=== PATIENT | female | born 1935 | race Two or more races ===

== ENCOUNTER 2016-05-29 13:31 | Outpatient (RCR) | payer OTHER, MEDICARE ==
[2016-06-18] MEDS ORDERED: SILV-4 TOP (11:30)
--- NOTE | 2016-06-26 10:46 | RADONC ---
RADIATION ONCOLOGY PROGRESS NOTE: DATE: 06/25/2016 Ms. Dickson is thus far at a dose of 3600 centigrade to her pelvis and was last treated on 06/18/2016. The patient has not shown up for treatment for the past week. Her daughter called again today reporting that she still has skin problems. She reports that there is some minor openings in the skin. We let the patient's daughter know that I have sent in a prescription for Silvadene a week ago. The prescription went in, according to our electronic medical record, on the . The patient's daughter then told us that she had been using the Silvadene until the skin blistered and then she went to antibiotic ointments. I instructed her to continue with the Silvadene which is specifically for mcneill. I have made it aware to the patient's daughter that she is losing chance of local control with each day off and I would like to resume as soon as possible. The patient's daughter says she is not up to that yet and they will let us know had they will let us know when she is coming back. Apparently, there is no decision yet made on whether or not she is going to go for the brachytherapy procedure. In light of the fact that brachytherapy is unlikely, I guess the break in the external beam portion is of less significant since we will not be able to control this disease. I have had and will continue to have multiple long conversations with the patient and her family with regards to the lack of ability to control this disease with only external beam radiation as well as interrupted external beam radiation. In addition, she has not had radiation sensitizing chemotherapy either. One can only consider this then palliative in nature.
--- NOTE | 2016-07-02 16:05 | RADONC ---
RADIATION ONCOLOGY TREATMENT SUMMARY DATE: 07/02/2016 CHART NUMBER: [id number] DIAGNOSIS: Cervical cancer. STAGE: Unknown. ECOG PERFORMANCE STATUS: 1. Ms. 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 We treated the patient to her pelvis for a dose of 3600 cGy delivered in 20 fractions of 180 cGy each over 33 elapsed days from 05/16/2016 through 06/18/2016. The patient was treated on the linear accelerator utilizing an 18 MV photon beam via 3-D conformal technique with anterior posterior left and right lateral gallo. The patient and her family have refused come in for the last 2 weeks of treatment. On at least a weekly basis, if not more frequently, I have spoken with the patient and her family in detail and length with regards to need for brachytherapy procedure and uninterrupted radiation. The patient's daughter called today saying the family and the patient have decided against any further radiation or followup in our office. We made clear to her once again the ramifications of this. The patient is not presently bleeding according to the family. I have made clear not just today, but during multiple phone calls and another conversations that if radiation is interrupted the bleeding will just return and then there is really nothing we can do about this. Once again the patient and her family have refused to come in for treatment or for brachytherapy against medical advice. They have removed themselves from followup in our office as well. They will not be returning to Dr. Becker's office either according to the daughter. I am therefore removing her from our treatment schedule and followup schedule as well. cc: Adela Astorga MD *Dr. Valenzuela *Kaylen Becker MD
== END 2016-06-26 ==
LOC: M ONCR 13:31
PROVIDERS: ATTEND Radiology Radiation Oncology
DX: C53.9 Malignant neoplasm of cervix uteri, unspecified (principal)

== ENCOUNTER 2016-06-30 23:06 | Emergency (ER) | payer MEDICARE, OTHER ==
[~2016-06-30 23:06] MED LIST: SILV-4 TOP
[2016-07-01 02:06] LABS: BASO % 0.1 % (0.0-1.0); EOS # 0.1 K/mm3 (0.0-0.50); EOS % 1.3 % (0.0-3.0); LARGE UNSTAINED CELL # 0.2 K/mm3 (0.0-0.4); LARGE UNSTAINED CELL % 3.4 % (0.0-4.0); LYMPH # 0.3 K/mm3 (1.5-4.5); LYMPH % 4.9 % (24.0-44.0); MEAN CORPUSCULAR HEMOGLOBIN 23.9 pg (27.0-33.0); MEAN CORPUSCULAR HGB CONC 29.3 g/dl (32.0-36.5); MEAN CORPUSCULAR VOLUME 81.6 fl (80.0-96.0); MONO # 0.3 K/mm3 (0.0-0.8); NEUTROPHILS # 4.5 K/mm3 (1.8-7.7); NEUTROPHILS % 85.3 % (36.0-66.0); PLATELET COUNT, AUTOMATED 437 k/mm3 (150-450); RED CELL DISTRIBUTION WIDTH 20.3 % (11.5-14.5); WHITE BLOOD COUNT 5.3 K/mm3 (4.0-10.0)
[2016-07-01 02:31] LABS: ANION GAP 8 MEQ/L (8-16); BLOOD UREA NITROGEN 18 MG/DL (7-18); CALCIUM LEVEL 9.2 MG/DL (8.8-10.2); CARBON DIOXIDE LEVEL 26 MEQ/L (21-32); CHLORIDE LEVEL 103 MEQ/L (98-107); CREATININE FOR GFR 0.72 MG/DL (0.55-1.02); GLOMERULAR FILTRATION RATE > 60.0 (>32); GLUCOSE, FASTING 154 MG/DL (83-110); POTASSIUM SERUM 4.6 MEQ/L (3.5-5.1); SODIUM LEVEL 137 MEQ/L (136-145)
[2016-07-01] MEDS ORDERED: MORPHINE 2 MG/ML 1ML SYRINGE As Ordered ONE (03:28)
[2016-07-01] MEDS ORDERED: ISOVUE-370 76% 100ML VIAL (Q9967) As Ordered ONE (03:34)
--- NOTE | 2016-07-01 04:40 | REPUSA ---
CLINICAL HISTORY: Abdominal pain. TECHNIQUE: Multiple axial, sagittal and coronal CT images were obtained through the abdomen and pelvi s after administration of intravenous contrast material. COMMENTS: The liver is of uniform attenuation without mass or defect. There is no intra or extrahepatic biliary ductal dilatation. The spleen is normal. The gallbladder is surgically absent. The pancreas is of no rmal contour and attenuation characteristics. There is no evidence of adrenal mass. Both kidneys demonstrate prompt and equal nephrograms. The kidneys are normal in size, shape and conf iguration. There is no evidence of renal or ureteral mass. No renal or ureteral calculi are identifie d. There is no hydroureter or hydronephrosis. No evidence for appendicitis. No evidence for small or large bowel obstruction. There is no evidence of abdominal ascites or lymphadenopathy. There is no evidence of intrinsic or extrinsic bladder mass. There is no pelvic ascites or lymphadeno petey. Fluid-filled small bowel suggestive of enteritis. Fluid-filled colon. Sigmoid diverticulosis. Thickened bladder. Hypodensity in the endometrial cavity. Images of the lung bases show no evidence of pleural or parenchymal mass. There are no pleural effusi ons. Bilateral basilar atelectatic pulmonary changes. The bony structures are free of lytic or blastic lesions. Multilevel degenerative changes are seen in volving the thoracolumbar spine. Scattered calcifications are seen involving the aorta and major bran ches compatible with atherosclerosis. IMPRESSION: Enterocolitis. Cystitis. Bilateral basilar atelectatic pulmonary changes. Thank you for your kind referral of this patient.
[2016-07-01] MEDS ORDERED: BACTRIM 160MG/800MG DS TAB As Ordered ONE (05:26)
--- NOTE | 2016-07-01 05:38 | EDDOCDS ---
Nurse's Notes [facility] Name: Kathy Dickson Age: 81 yrs Sex: Female : 1935 Arrival Date: 06/30/2016 Time: 23:06 Bed 6 Private MD: Charan Hay Diagnosis: Other specified disorders of the skin and subcutaneous tissue related to radiation;Cystitis, unspecified Presentation: 06/30 23:14 Presenting complaint: Patient states: Radiation to right groin--tonight has hole in mcp groin with some drainage. Adult Sepsis Screening: The patient does not have new or worsening altered mentation. Patient's respiratory rate is less than 22. Systolic blood pressure is greater than 100. Patient has a qSOFA score of 0- Negative Sepsis Screen. Suicide/Homicide risk assessment- the patient denies having any suicidal and/or homicidal ideations and does not present with any other emotional, behavioral or mental health complaints. 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 Transition of care: patient was not received from another setting of care. 23:14 Acuity: ROSARIO Level 3 [facility] 23:14 Method Of Arrival: Walkin/Carried/Asstd [facility] Triage Assessment: 23:20 General: Appears uncomfortable, Behavior is cooperative. Pain: Location: right femoral mcp area Pain currently is 3 out of 10 on a pain scale. Neurological: No deficits noted. Respiratory: Airway is patent Respiratory effort is even, unlabored. Derm: Skin is pink, warm & dry. Historical: - Allergies: Aspirin; - Home Meds: 1. metformin 1,000 mg Oral TG24 1 tab 2 times per day 2. lisinopril 40 mg Oral tab 1 tab once daily 3. simvastatin 40 mg Oral tab 1 tab once daily 4. Sertraline 50 mg daily 5. thyroxine 25 mcg daily 6. repaglinide 2 mg oral tab 1 tab 3 times per day 7. pioglitazone 45 mg oral tab 1 tab once daily 8. Vitamin D Oral 1,000 unit twice a day 9. multivitamin Oral tab 1 tablet daily 10. Zantac 150 mg Oral cap as needed 11. Zyrtec 10 mg Oral tab 1 tab as needed - PMHx: Hypertension; Diabetes - NIDDM: controlled; Hypothyroidism; Hypercholesterolemia; Cancer, Cervix; - PSHx: Cholecystectomy; Appendectomy; - Social history: Smoking status: Patient states former smoker of tobacco. No barriers to communication noted, The patient speaks fluent Burmese. - Family history: Not pertinent. - : The pt / caregiver states he / she is not on anticoagulants. Home medication list is obtained from the patient. - Exposure Risk Screening:: None identified. Screenin/05 00:47 Screening information is obtained from the patient. Fall risk: At risk due to gait mv5 disturbance, uses cane at baseline.. Assistance ADL's: requires no assistance with activities of daily living. Abuse/DV Screen: The patient / caregiver reports he/she is: not in a situation that causes fear, pain or injury. Nutritional screening: No deficits noted. home support is adequate. 05:34 Advance Directives: There is no active DNR order. mv5 Assessment: 00:47 General: Appears uncomfortable, well nourished, well groomed, Behavior is cooperative, mv5 pleasant, Smells of wound exudate.. Pain: Location: right femoral area. Neurological: Level of Consciousness is awake, alert, Oriented to person, place, time. Cardiovascular: Capillary refill < 3 seconds. Respiratory: Airway is patent Respiratory effort is even, unlabored, labored. GI: Bowel sounds present X 4 quads. Abd is soft Abd is tender to palpation tender in right groin fold. Right groin firmer than left. Pt and family report several radiation treatments over the last 6 weeks to that area. Skin not intact. GI: Reports Pain is 6 out of 10 on a pain scale. pain in area of radiation burn/wound. Derm:. Injury Description: Burn sustained to right femoral area is "radiation burn" per pt and family r/t treatment of cervical CA. 01:18 General: Appears in no apparent distress, Pt awaiting ERP eval. mv5 02:52 General: Appears in no apparent distress, Pt assisted to restroom and returned to [facility] stretcher safely.. 03:58 General: Pt to CT and returned without incident.. mv5 Vital Signs: 06/30 23:07 BP 155 / 68; Pulse 104; Resp 18 S; Temp 98.0(O); Pulse Ox 97% on R/A; Weight 88 kg (R); gr2 Height 5 ft. 3 in. (160.02 cm) (R); Pain 5/10; 02/05 02:03 BP 134 / 63 (auto/); Pulse 98; Resp 18; mv5 02:05 Pulse Ox 98% ; mv5 02:33 BP 119 / 60 (auto/); mv5 02:33 Pulse Ox 96% ; mv5 03:56 BP 131 / 68 (auto/); mv5 03:57 Pulse Ox 98% ; mv5 04:06 BP 168 / 75 (auto/); mv5 04:07 Pulse Ox 96% ; mv5 04:33 BP 165 / 80 (auto/); mv5 04:33 Pulse Ox 98% ; mv5 05:03 BP 142 / 65 (auto/); mv5 05:03 BP 142 / 65; Pulse 88; Resp 18; Temp 98.2(O); Pulse Ox 99% ; mv5 02 23:07 Body Mass Index 34.37 (88.00 kg, 160.02 cm) gr2 Vitals: 06/30 23:07 Log In Time: June 30, 2016 at 23:07. gr2 ED Course: 23:07 Patient visited by Winsome Keith. gr2 23:07 Charan Hay is Private Physician. gr2 23:07 Patient moved to Waiting gr2 23:11 Patient visited by Winsome Keith. gr2 23:11 Patient moved to Pre RCE gr2 23:15 Triage Initiated [facility] 23:20 Patient visited by Esperanza Danielson RN. [facility] 02/05 00:37 Lotus Bauer, SIM is Primary Nurse. cz 00:37 Patient moved to 6 cz 00:47 Patient visited by Reshma Rivas RN. mv5 00:47 The patient / caregiver is instructed regarding the plan of care and ED course. mv5 01:18 Patient visited by Reshma Rivas RN. mv5 01:20 Seb Cullen DO is Attending Physician. cs11 01:36 Patient visited by Seb Cullen DO. cs11 01:47 Wound Culture - All Other Sources Sent. mv5 02:02 Inserted saline lock: 20 gauge in left antecubital area and blood collected. The mv5 patient tolerated the procedure well. 02:02 MED Profile Sent. mv5 02:02 CBC with Diff Sent. mv5 02:22 Patient visited by Reshma Rivas RN. mv5 02:32 Primary Nurse role handed off by Lotus Bauer RN mv5 02:32 Reshma Rivas RN is Primary Nurse. mv5 02:33 [facility] Payment Agreement was scanned into [employer] and attached to record. pm4 02:36 Patient name changed from Kathy\\S\\\\S\\Yessi\\S\\ to Kathy\\S\\ \\S\\Yessi. EDMS 02:52 Patient visited by Reshma Rivas RN. mv5 03:23 Patient visited by Reshma Rivas RN. mv5 03:57 Patient visited by Reshma Rivas RN. mv5 04:28 Patient visited by Reshma Rivas RN. mv5 04:41 CT ABD & PELVIS: IV Contrast Only Returned. EDMS 05:34 No procedures done that require assistance. mv5 05:34 Discontinued intact, bleeding controlled, pressure dressing applied, No mv5 redness/swelling at site. Administered Medications: 03:40 Drug: NS 0.9% 500 ml [sodium chloride 0.9 % intravenous solution] Route: IV; Rate: mv5 bolus; Site: left antecubital; 04:29 Follow up: IV Status: Completed infusion mv5 03:40 Drug: morphine 2 mg [morphine 2 mg/mL intravenous cartridge (1 mL)] Route: IVP; Site: mv5 left antecubital; 04:29 Follow up: Response: No Adverse Reaction; Pain is decreased mv5 05:30 Drug: Trimethoprim-Sulfamethoxazole 1 tabs [sulfamethoxazole 800 mg-trimethoprim 160 mg mv5 tablet (1 tabs)] Route: PO; 05:36 Follow up: Response: No Adverse Reaction mv5 Order Results: Lab Order: CBC with Diff; SPEC'M 07/01/16 01:53 Test: WHITE BLOOD COUNT; Value: 5.3; Range: 4.0-10.0; Units: K/mm3; Status: F Test: RED BLOOD COUNT; Value: 3.63; Range: 4.00-5.40; Abnormal: Below low normal; Units: M/mm3; Status: F Test: HEMOGLOBIN; Value: 8.7; Range: 12.0-16.0; Abnormal: Below low normal; Units: g/dl; Status: F Test: HEMATOCRIT; Value: 29.6; Range: 36.0-47.0; Abnormal: Below low normal; Units: %; Status: F Test: MEAN CORPUSCULAR VOLUME; Value: 81.6; Range: 80.0-96.0; Units: fl; Status: F Test: MEAN CORPUSCULAR HEMOGLOBIN; Value: 23.9; Range: 27.0-33.0; Abnormal: Below low normal; Units: pg; Status: F Test: MEAN CORPUSCULAR HGB CONC; Value: 29.3; Range: 32.0-36.5; Abnormal: Below low normal; Units: g/dl; Status: F Test: RED CELL DISTRIBUTION WIDTH; Value: 20.3; Range: 11.5-14.5; Abnormal: Above high normal; Units: %; Status: F Test: PLATELET COUNT, AUTOMATED; Value: 437; Range: 150-450; Units: k/mm3; Status: F Test: NEUTROPHILS %; Value: 85.3; Range: 36.0-66.0; Abnormal: Above high normal; Units: %; Status: F Test: LYMPH %; Value: 4.9; Range: 24.0-44.0; Abnormal: Below low normal; Units: %; Status: F Test: MONO %; Value: 5.0; Range: 0.0-5.0; Units: %; Status: F Test: EOS %; Value: 1.3; Range: 0.0-3.0; Units: %; Status: F Test: BASO %; Value: 0.1; Range: 0.0-1.0; Units: %; Status: F Test: LARGE UNSTAINED CELL %; Value: 3.4; Range: 0.0-4.0; Units: %; Status: F Test: NEUTROPHILS #; Value: 4.5; Range: 1.8-7.7; Units: K/mm3; Status: F Test: LYMPH #; Value: 0.3; Range: 1.5-4.5; Abnormal: Below low normal; Units: K/mm3; Status: F Test: MONO #; Value: 0.3; Range: 0.0-0.8; Units: K/mm3; Status: F Test: EOS #; Value: 0.1; Range: 0.0-0.50; Units: K/mm3; Status: F Test: BASO #; Value: 0.0; Range: 0.0-0.2; Units: K/mm3; Status: F Test: LARGE UNSTAINED CELL #; Value: 0.2; Range: 0.0-0.4; Units: K/mm3; Status: F Lab Order: MED Profile; JAMI'Anabela 07/01/16 01:53 Test: GLUCOSE, FASTING; Value: 154; Range: 83-110; Abnormal: Above high normal; Units: MG/DL; Status: F Test: BLOOD UREA NITROGEN; Value: 18; Range: 7-18; Units: MG/DL; Status: F Test: CREATININE FOR GFR; Value: 0.72; Range: 0.55-1.02; Units: MG/DL; Status: F Test: GLOMERULAR FILTRATION RATE; Value: > 60.0; Range: >32; Status: F Test: SODIUM LEVEL; Value: 137; Range: 136-145; Units: MEQ/L; Status: F Test: POTASSIUM SERUM; Value: 4.6; Range: 3.5-5.1; Units: MEQ/L; Status: F Test: CHLORIDE LEVEL; Value: 103; Range: 98-107; Units: MEQ/L; Status: F Test: CARBON DIOXIDE LEVEL; Value: 26; Range: 21-32; Units: MEQ/L; Status: F Test: ANION GAP; Value: 8; Range: 8-16; Units: MEQ/L; Status: F Test: CALCIUM LEVEL; Value: 9.2; Range: 8.8-10.2; Units: MG/DL; Status: F Test Note: ; Units are mL/min/1.73 m2 Chronic Kidney Disease Staging per NKF: Stage I & II GFR >=60 Normal to Mildly Decreased Stage III GFR 30-59 Moderately Decreased Stage IV GFR 15-29 Severely Decreased Stage V GFR <15 Very Little GFR Left ESRD GFR <15 on INSTALL TECHNICIAN Radiology Order: CT ABD & PELVIS: IV Contrast Only Test: CT ABD & PELVIS: IV Contrast Only REASON FOR EXAMINATION: eval for RLQ abscess; ; CLINICAL HISTORY: Abdominal pain.; TECHNIQUE: Multiple axial, sagittal and coronal CT images were obtained through the abdomen and pelvi; s after administration of intravenous contrast material.; COMMENTS:; The liver is of uniform attenuation without mass or defect. There is no intra or extrahepatic biliary; ductal dilatation. The spleen is normal. The gallbladder is surgically absent. The pancreas is of no; rmal contour and attenuation characteristics. There is no evidence of adrenal mass.; Both kidneys demonstrate prompt and equal nephrograms. The kidneys are normal in size, shape and conf; iguration. There is no evidence of renal or ureteral mass. No renal or ureteral calculi are identifie; d. There is no hydroureter or hydronephrosis.; No evidence for appendicitis. No evidence for small or large bowel obstruction. There is no evidence; of abdominal ascites or lymphadenopathy.; There is no evidence of intrinsic or extrinsic bladder mass. There is no pelvic ascites or lymphadeno; petey. Fluid-filled small bowel suggestive of enteritis. Fluid-filled colon. Sigmoid diverticulosis.; Thickened bladder. Hypodensity in the endometrial cavity.; Images of the lung bases show no evidence of pleural or parenchymal mass. There are no pleural effusi; ons. Bilateral basilar atelectatic pulmonary changes.; The bony structures are free of lytic or blastic lesions. Multilevel degenerative changes are seen in; volving the thoracolumbar spine. Scattered calcifications are seen involving the aorta and major bran; ches compatible with atherosclerosis.; IMPRESSION:; Enterocolitis.; Cystitis.; Bilateral basilar atelectatic pulmonary changes.; Thank you for your kind referral of this patient.; ; Outcome: 05:25 Discharge ordered by Provider. cs11 05:34 Discharge Assessment: Patient awake, alert and oriented x 3. No cognitive and/or mv5 functional deficits noted. Patient verbalized understanding of disposition instructions. patient administered narcotics - yes. Pt provided with safe discharge. The following High Risk Discharge criteria are identified: None. Discharged to home with family. Condition: stable. Discharge instructions given to patient, Demonstrated understanding of instructions, Pt was receptive of discharge instructions/ teaching. CT Study completed. Property sent home with patient. 05:37 Patient left the ED. mv5 Signatures: Dispatcher [employer] EDMS Esperanza Danielson RN RN mcp Zecher, Calvin, RN RN cz Schiff, Craig, DO DO cs11 Winsome Keith gr2 Mauro Zaidi, Reg Reg pm4 Vannedery,Reshma,RN RN mv5 MTDD
--- NOTE | 2016-07-01 05:38 | EDDOCDS ---
Physician Documentation [facility] Name: Kathy Dickson Age: 81 yrs Sex: Female : 1935 Arrival Date: 06/30/2016 Time: 23:06 Bed 6 Private MD: Charan Hay Disposition: 07/01/16 05:25 Discharged to Home/Self Care. 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 - Condition is Stable. - Prescriptions for Bactrim DS 800- 160 mg Oral Tablet - take 1 tablet by ORAL route every 12 hours for 5 days; 10 tablet. - Medication Reconciliation, Local Pharmacy Hours form. - Follow up: Private Physician; When: Call to arrange an appointment; Reason: Recheck today's complaints. - Problem is an ongoing problem. - Symptoms are unchanged. Historical: - Allergies: Aspirin; - Home Meds: 1. metformin 1,000 mg Oral TG24 1 tab 2 times per day 2. lisinopril 40 mg Oral tab 1 tab once daily 3. simvastatin 40 mg Oral tab 1 tab once daily 4. Sertraline 50 mg daily 5. thyroxine 25 mcg daily 6. repaglinide 2 mg oral tab 1 tab 3 times per day 7. pioglitazone 45 mg oral tab 1 tab once daily 8. Vitamin D Oral 1,000 unit twice a day 9. multivitamin Oral tab 1 tablet daily 10. Zantac 150 mg Oral cap as needed 11. Zyrtec 10 mg Oral tab 1 tab as needed - PMHx: Hypertension; Diabetes - NIDDM: controlled; Hypothyroidism; Hypercholesterolemia; Cancer, Cervix; - PSHx: Cholecystectomy; Appendectomy; - Social history: Smoking status: Patient states former smoker of tobacco. No barriers to communication noted, The patient speaks fluent Malagasy. - Family history: Not pertinent. - : The pt / caregiver states he / she is not on anticoagulants. Home medication list is obtained from the patient. - Exposure Risk Screening:: None identified. Vital Signs: 06/30 23:07 BP 155 / 68; Pulse 104; Resp 18 S; Temp 98.0(O); Pulse Ox 97% on R/A; Weight 88 kg / gr2 194.01 lbs (R); Height 5 ft. 3 in. (160.02 cm) (R); Pain 5/10; 07/01 02:03 BP 134 / 63 (auto/); Pulse 98; Resp 18; mv5 02:05 Pulse Ox 98% ; mv5 02:33 BP 119 / 60 (auto/); mv5 02:33 Pulse Ox 96% ; mv5 03:56 BP 131 / 68 (auto/); mv5 03:57 Pulse Ox 98% ; mv5 04:06 BP 168 / 75 (auto/); mv5 04:07 Pulse Ox 96% ; mv5 04:33 BP 165 / 80 (auto/); mv5 04:33 Pulse Ox 98% ; mv5 05:03 BP 142 / 65 (auto/); mv5 05:03 BP 142 / 65; Pulse 88; Resp 18; Temp 98.2(O); Pulse Ox 99% ; mv5 02/04 23:07 Body Mass Index 34.37 (88.00 kg, 160.02 cm) gr2 MDM: 01:44 Wound Culture - All Other Sources Ordered. EDMS 01:50 IV Saline Lock ordered. cs11 01:50 CBC with Diff Ordered. EDMS 01:51 MED Profile Ordered. EDMS 02:23 Financial registration complete. pm4 02:33 [facility] Payment Agreement was scanned into [employer] and attached to record. pm4 03:24 CBC with Diff Reviewed. cs11 03:24 MED Profile Reviewed. cs11 03:25 NS 0.9% 500 ml IV at bolus once ordered. cs11 03:26 CT ABD & PELVIS: IV Contrast Only Ordered. EDMS 03:26 morphine 2 mg IVP once ordered. cs11 05:18 CT ABD & PELVIS: IV Contrast Only Reviewed. cs11 05:24 Trimethoprim-Sulfamethoxazole 160 mg-800 mg (DS) 1 tabs PO once ordered. cs11 Administered Medications: 03:40 Drug: NS 0.9% 500 ml [sodium chloride 0.9 % intravenous solution] Route: IV; Rate: mv5 bolus; Site: left antecubital; 04:29 Follow up: IV Status: Completed infusion mv5 03:40 Drug: morphine 2 mg [morphine 2 mg/mL intravenous cartridge (1 mL)] Route: IVP; Site: mv5 left antecubital; 04:29 Follow up: Response: No Adverse Reaction; Pain is decreased mv5 05:30 Drug: Trimethoprim-Sulfamethoxazole 1 tabs [sulfamethoxazole 800 mg-trimethoprim 160 mg mv5 tablet (1 tabs)] Route: PO; 05:36 Follow up: Response: No Adverse Reaction mv5 Signatures: Dispatcher [employer] Esperanza Blood, RN RN mcp Seb Cullen, DO cs11 Mauro Zaidi, Reg Reg pm4 Reshma Rivas RN RN mv5 The chart was reviewed and I authenticate all verbal orders and agree with the evaluation and treatment provided.Attachments: 02:33 [facility] Payment Agreement pm4 MTDD
--- NOTE | 2016-07-03 06:38 | EDDOCDS ---
Physician Documentation [facility] Name: Kathy Dickson Age: 81 yrs Sex: Female : 1935 Arrival Date: 06/30/2016 Time: 23:06 Bed 6 Private MD: Charan Hay Disposition: 07/01/16 05:25 Discharged to Home/Self Care. 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 - Condition is Stable. - Prescriptions for Bactrim DS 800- 160 mg Oral Tablet - take 1 tablet by ORAL route every 12 hours for 5 days; 10 tablet. - Medication Reconciliation, Local Pharmacy Hours form. - Follow up: Private Physician; When: Call to arrange an appointment; Reason: Recheck today's complaints. - Problem is an ongoing problem. - Symptoms are unchanged. Historical: - Allergies: Aspirin; - Home Meds: 1. metformin 1,000 mg Oral TG24 1 tab 2 times per day 2. lisinopril 40 mg Oral tab 1 tab once daily 3. simvastatin 40 mg Oral tab 1 tab once daily 4. Sertraline 50 mg daily 5. thyroxine 25 mcg daily 6. repaglinide 2 mg oral tab 1 tab 3 times per day 7. pioglitazone 45 mg oral tab 1 tab once daily 8. Vitamin D Oral 1,000 unit twice a day 9. multivitamin Oral tab 1 tablet daily 10. Zantac 150 mg Oral cap as needed 11. Zyrtec 10 mg Oral tab 1 tab as needed - PMHx: Hypertension; Diabetes - NIDDM: controlled; Hypothyroidism; Hypercholesterolemia; Cancer, Cervix; - PSHx: Cholecystectomy; Appendectomy; - Social history: Smoking status: Patient states former smoker of tobacco. No barriers to communication noted, The patient speaks fluent Cuban. - Family history: Not pertinent. - : The pt / caregiver states he / she is not on anticoagulants. Home medication list is obtained from the patient. - Exposure Risk Screening:: None identified. Vital Signs: 06/30 23:07 BP 155 / 68; Pulse 104; Resp 18 S; Temp 98.0(O); Pulse Ox 97% on R/A; Weight 88 kg / gr2 194.01 lbs (R); Height 5 ft. 3 in. (160.02 cm) (R); Pain 5/10; 02/05 02:03 BP 134 / 63 (auto/); Pulse 98; Resp 18; mv5 02:05 Pulse Ox 98% ; mv5 02:33 BP 119 / 60 (auto/); mv5 02:33 Pulse Ox 96% ; mv5 03:56 BP 131 / 68 (auto/); mv5 03:57 Pulse Ox 98% ; mv5 04:06 BP 168 / 75 (auto/); mv5 04:07 Pulse Ox 96% ; mv5 04:33 BP 165 / 80 (auto/); mv5 04:33 Pulse Ox 98% ; mv5 05:03 BP 142 / 65 (auto/); mv5 05:03 BP 142 / 65; Pulse 88; Resp 18; Temp 98.2(O); Pulse Ox 99% ; mv5 02/04 23:07 Body Mass Index 34.37 (88.00 kg, 160.02 cm) gr2 MDM: 01:44 Wound Culture - All Other Sources Ordered. EDMS 01:50 IV Saline Lock ordered. cs11 01:50 CBC with Diff Ordered. EDMS 01:51 MED Profile Ordered. EDMS 02:23 Financial registration complete. pm4 02:33 [facility] Payment Agreement was scanned into [employer] and attached to record. pm4 03:24 CBC with Diff Reviewed. cs11 03:24 MED Profile Reviewed. cs11 03:25 NS 0.9% 500 ml IV at bolus once ordered. cs11 03:26 CT ABD & PELVIS: IV Contrast Only Ordered. EDMS 03:26 morphine 2 mg IVP once ordered. cs11 05:18 CT ABD & PELVIS: IV Contrast Only Reviewed. cs11 05:24 Trimethoprim-Sulfamethoxazole 160 mg-800 mg (DS) 1 tabs PO once ordered. cs11 12:45 T-Sheet-- Draft Copy was scanned into [employer] and attached to record. gb Administered Medications: 03:40 Drug: NS 0.9% 500 ml [sodium chloride 0.9 % intravenous solution] Route: IV; Rate: mv5 bolus; Site: left antecubital; 04:29 Follow up: IV Status: Completed infusion mv5 03:40 Drug: morphine 2 mg [morphine 2 mg/mL intravenous cartridge (1 mL)] Route: IVP; Site: mv5 left antecubital; 04:29 Follow up: Response: No Adverse Reaction; Pain is decreased mv5 05:30 Drug: Trimethoprim-Sulfamethoxazole 1 tabs [sulfamethoxazole 800 mg-trimethoprim 160 mg mv5 tablet (1 tabs)] Route: PO; 05:36 Follow up: Response: No Adverse Reaction mv5 Signatures: Dispatcher [employer] Esperanza Blood, RN RN [facility] Beth Ramsay, Reg Reg gb Seb Cullen, DO cs11 Mauro Zaidi, Reg Reg pm4 Reshma Rivas RN RN mv5 The chart was reviewed and I authenticate all verbal orders and agree with the evaluation and treatment provided.Attachments: 02:33 [facility] Payment Agreement pm4 12:45 T-Sheet-- Draft Copy gb Chart Complete MTDD
--- NOTE | 2016-07-03 06:38 | EDDOCDS ---
Physician Documentation [facility] Name: Kathy Dickson Age: 81 yrs Sex: Female : 1935 Arrival Date: 06/30/2016 Time: 23:06 Bed 6 Private MD: Charan Hay Disposition: 07/01/16 05:25 Discharged to Home/Self Care. 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 - Condition is Stable. - Prescriptions for Bactrim DS 800- 160 mg Oral Tablet - take 1 tablet by ORAL route every 12 hours for 5 days; 10 tablet. - Medication Reconciliation, Local Pharmacy Hours form. - Follow up: Private Physician; When: Call to arrange an appointment; Reason: Recheck today's complaints. - Problem is an ongoing problem. - Symptoms are unchanged. Historical: - Allergies: Aspirin; - Home Meds: 1. metformin 1,000 mg Oral TG24 1 tab 2 times per day 2. lisinopril 40 mg Oral tab 1 tab once daily 3. simvastatin 40 mg Oral tab 1 tab once daily 4. Sertraline 50 mg daily 5. thyroxine 25 mcg daily 6. repaglinide 2 mg oral tab 1 tab 3 times per day 7. pioglitazone 45 mg oral tab 1 tab once daily 8. Vitamin D Oral 1,000 unit twice a day 9. multivitamin Oral tab 1 tablet daily 10. Zantac 150 mg Oral cap as needed 11. Zyrtec 10 mg Oral tab 1 tab as needed - PMHx: Hypertension; Diabetes - NIDDM: controlled; Hypothyroidism; Hypercholesterolemia; Cancer, Cervix; - PSHx: Cholecystectomy; Appendectomy; - Social history: Smoking status: Patient states former smoker of tobacco. No barriers to communication noted, The patient speaks fluent Bruneian. - Family history: Not pertinent. - : The pt / caregiver states he / she is not on anticoagulants. Home medication list is obtained from the patient. - Exposure Risk Screening:: None identified. Vital Signs: 06/30 23:07 BP 155 / 68; Pulse 104; Resp 18 S; Temp 98.0(O); Pulse Ox 97% on R/A; Weight 88 kg / gr2 194.01 lbs (R); Height 5 ft. 3 in. (160.02 cm) (R); Pain 5/10; 02/05 02:03 BP 134 / 63 (auto/); Pulse 98; Resp 18; mv5 02:05 Pulse Ox 98% ; mv5 02:33 BP 119 / 60 (auto/); mv5 02:33 Pulse Ox 96% ; mv5 03:56 BP 131 / 68 (auto/); mv5 03:57 Pulse Ox 98% ; mv5 04:06 BP 168 / 75 (auto/); mv5 04:07 Pulse Ox 96% ; mv5 04:33 BP 165 / 80 (auto/); mv5 04:33 Pulse Ox 98% ; mv5 05:03 BP 142 / 65 (auto/); mv5 05:03 BP 142 / 65; Pulse 88; Resp 18; Temp 98.2(O); Pulse Ox 99% ; mv5 02/04 23:07 Body Mass Index 34.37 (88.00 kg, 160.02 cm) gr2 MDM: 01:44 Wound Culture - All Other Sources Ordered. EDMS 01:50 IV Saline Lock ordered. cs11 01:50 CBC with Diff Ordered. EDMS 01:51 MED Profile Ordered. EDMS 02:23 Financial registration complete. pm4 02:33 [facility] Payment Agreement was scanned into [employer] and attached to record. pm4 03:24 CBC with Diff Reviewed. cs11 03:24 MED Profile Reviewed. cs11 03:25 NS 0.9% 500 ml IV at bolus once ordered. cs11 03:26 CT ABD & PELVIS: IV Contrast Only Ordered. EDMS 03:26 morphine 2 mg IVP once ordered. cs11 05:18 CT ABD & PELVIS: IV Contrast Only Reviewed. cs11 05:24 Trimethoprim-Sulfamethoxazole 160 mg-800 mg (DS) 1 tabs PO once ordered. cs11 12:45 T-Sheet-- Draft Copy was scanned into [employer] and attached to record. gb Administered Medications: 03:40 Drug: NS 0.9% 500 ml [sodium chloride 0.9 % intravenous solution] Route: IV; Rate: mv5 bolus; Site: left antecubital; 04:29 Follow up: IV Status: Completed infusion mv5 03:40 Drug: morphine 2 mg [morphine 2 mg/mL intravenous cartridge (1 mL)] Route: IVP; Site: mv5 left antecubital; 04:29 Follow up: Response: No Adverse Reaction; Pain is decreased mv5 05:30 Drug: Trimethoprim-Sulfamethoxazole 1 tabs [sulfamethoxazole 800 mg-trimethoprim 160 mg mv5 tablet (1 tabs)] Route: PO; 05:36 Follow up: Response: No Adverse Reaction mv5 Signatures: Dispatcher [employer] Esperanza Blood, RN RN [facility] Beth Ramsay, Reg Reg gb Seb Cullen, DO cs11 Mauro Zaidi, Reg Reg pm4 Reshma Rivas RN RN mv5 The chart was reviewed and I authenticate all verbal orders and agree with the evaluation and treatment provided.Attachments: 02:33 [facility] Payment Agreement pm4 12:45 T-Sheet-- Draft Copy gb Chart Complete MTDD
--- NOTE | 2016-07-03 06:38 | EDDOCDS ---
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 Adult Sepsis Screening: The patient does not have new or worsening altered mentation. Patient's respiratory rate is less than 22. Systolic blood pressure is greater than 100. Patient has a qSOFA score of 0- Negative Sepsis Screen. Suicide/Homicide risk assessment- the patient denies having any suicidal and/or homicidal ideations and does not present with any other emotional, behavioral or mental health complaints. Status: Patient is not a construction services technician or dependent. Transition of care: patient was not received from another setting of care. 23:14 Acuity: ROSARIO Level 3 [facility] 23:14 Method Of Arrival: Walkin/Carried/Asstd [facility] Triage Assessment: 23:20 General: Appears uncomfortable, Behavior is cooperative. Pain: Location: right femoral mcp area Pain currently is 3 out of 10 on a pain scale. Neurological: No deficits noted. Respiratory: Airway is patent Respiratory effort is even, unlabored. Derm: Skin is pink, warm & dry. Historical: - Allergies: Aspirin; - Home Meds: 1. metformin 1,000 mg Oral TG24 1 tab 2 times per day 2. lisinopril 40 mg Oral tab 1 tab once daily 3. simvastatin 40 mg Oral tab 1 tab once daily 4. Sertraline 50 mg daily 5. thyroxine 25 mcg daily 6. repaglinide 2 mg oral tab 1 tab 3 times per day 7. pioglitazone 45 mg oral tab 1 tab once daily 8. Vitamin D Oral 1,000 unit twice a day 9. multivitamin Oral tab 1 tablet daily 10. Zantac 150 mg Oral cap as needed 11. Zyrtec 10 mg Oral tab 1 tab as needed - PMHx: Hypertension; Diabetes - NIDDM: controlled; Hypothyroidism; Hypercholesterolemia; Cancer, Cervix; - PSHx: Cholecystectomy; Appendectomy; - Social history: Smoking status: Patient states former smoker of tobacco. No barriers to communication noted, The patient speaks fluent Pakistani. - Family history: Not pertinent. - : The pt / caregiver states he / she is not on anticoagulants. Home medication list is obtained from the patient. - Exposure Risk Screening:: None identified. Screenin/05 00:47 Screening information is obtained from the patient. Fall risk: At risk due to gait mv5 disturbance, uses cane at baseline.. Assistance ADL's: requires no assistance with activities of daily living. Abuse/DV Screen: The patient / caregiver reports he/she is: not in a situation that causes fear, pain or injury. Nutritional screening: No deficits noted. home support is adequate. 05:34 Advance Directives: There is no active DNR order. mv5 Assessment: 00:47 General: Appears uncomfortable, well nourished, well groomed, Behavior is cooperative, mv5 pleasant, Smells of wound exudate.. Pain: Location: right femoral area. Neurological: Level of Consciousness is awake, alert, Oriented to person, place, time. Cardiovascular: Capillary refill < 3 seconds. Respiratory: Airway is patent Respiratory effort is even, unlabored, labored. GI: Bowel sounds present X 4 quads. Abd is soft Abd is tender to palpation tender in right groin fold. Right groin firmer than left. Pt and family report several radiation treatments over the last 6 weeks to that area. Skin not intact. GI: Reports Pain is 6 out of 10 on a pain scale. pain in area of radiation burn/wound. Derm:. Injury Description: Burn sustained to right femoral area is "radiation burn" per pt and family r/t treatment of cervical CA. 01:18 General: Appears in no apparent distress, Pt awaiting ERP eval. mv5 02:52 General: Appears in no apparent distress, Pt assisted to restroom and returned to [facility] stretcher safely.. 03:58 General: Pt to CT and returned without incident.. mv5 Vital Signs: 06/30 23:07 BP 155 / 68; Pulse 104; Resp 18 S; Temp 98.0(O); Pulse Ox 97% on R/A; Weight 88 kg (R); gr2 Height 5 ft. 3 in. (160.02 cm) (R); Pain 5/10; 02/05 02:03 BP 134 / 63 (auto/); Pulse 98; Resp 18; mv5 02:05 Pulse Ox 98% ; mv5 02:33 BP 119 / 60 (auto/); mv5 02:33 Pulse Ox 96% ; mv5 03:56 BP 131 / 68 (auto/); mv5 03:57 Pulse Ox 98% ; mv5 04:06 BP 168 / 75 (auto/); mv5 04:07 Pulse Ox 96% ; mv5 04:33 BP 165 / 80 (auto/); mv5 04:33 Pulse Ox 98% ; mv5 05:03 BP 142 / 65 (auto/); mv5 05:03 BP 142 / 65; Pulse 88; Resp 18; Temp 98.2(O); Pulse Ox 99% ; mv5 02 23:07 Body Mass Index 34.37 (88.00 kg, 160.02 cm) gr2 Vitals: 06/30 23:07 Log In Time: June 30, 2016 at 23:07. gr2 ED Course: 23:07 Patient visited by Winsome Keith. gr2 23:07 Charan Hay is Private Physician. gr2 23:07 Patient moved to Waiting gr2 23:11 Patient visited by Winsome Keith. gr2 23:11 Patient moved to Pre RCE gr2 23:15 Triage Initiated [facility] 23:20 Patient visited by Esperanza Danielson RN. [facility] 02/05 00:37 Lotus Bauer, SIM is Primary Nurse. cz 00:37 Patient moved to 6 cz 00:47 Patient visited by Reshma Rivas RN. mv5 00:47 The patient / caregiver is instructed regarding the plan of care and ED course. mv5 01:18 Patient visited by Rehsma Rivas RN. mv5 01:20 Seb Cullen DO is Attending Physician. cs11 01:36 Patient visited by Seb Cullen DO. cs11 01:47 Wound Culture - All Other Sources Sent. mv5 02:02 Inserted saline lock: 20 gauge in left antecubital area and blood collected. The mv5 patient tolerated the procedure well. 02:02 MED Profile Sent. mv5 02:02 CBC with Diff Sent. mv5 02:22 Patient visited by Reshma Rivas RN. mv5 02:32 Primary Nurse role handed off by Lotus Bauer RN mv5 02:32 Reshma Rivas RN is Primary Nurse. mv5 02:33 [facility] Payment Agreement was scanned into [employer] and attached to record. pm4 02:36 Patient name changed from Kathy\\S\\\\S\\Yessi\\S\\ to Kathy\\S\\ \\S\\Yessi. EDMS 02:52 Patient visited by Reshma Rivas RN. mv5 03:23 Patient visited by Reshma Rivas RN. mv5 03:57 Patient visited by Reshma Rivas RN. mv5 04:28 Patient visited by Reshma Rivas RN. mv5 04:41 CT ABD & PELVIS: IV Contrast Only Returned. EDMS 05:34 No procedures done that require assistance. mv5 05:34 Discontinued intact, bleeding controlled, pressure dressing applied, No mv5 redness/swelling at site. 12:45 T-Sheet-- Draft Copy was scanned into [employer] and attached to record. gb Administered Medications: 03:40 Drug: NS 0.9% 500 ml [sodium chloride 0.9 % intravenous solution] Route: IV; Rate: mv5 bolus; Site: left antecubital; 04:29 Follow up: IV Status: Completed infusion mv5 03:40 Drug: morphine 2 mg [morphine 2 mg/mL intravenous cartridge (1 mL)] Route: IVP; Site: mv5 left antecubital; 04:29 Follow up: Response: No Adverse Reaction; Pain is decreased mv5 05:30 Drug: Trimethoprim-Sulfamethoxazole 1 tabs [sulfamethoxazole 800 mg-trimethoprim 160 mg mv5 tablet (1 tabs)] Route: PO; 05:36 Follow up: Response: No Adverse Reaction mv5 Order Results: Lab Order: CBC with Diff; SPEC'M 07/01/16 01:53 Test: WHITE BLOOD COUNT; Value: 5.3; Range: 4.0-10.0; Units: K/mm3; Status: F Test: RED BLOOD COUNT; Value: 3.63; Range: 4.00-5.40; Abnormal: Below low normal; Units: M/mm3; Status: F Test: HEMOGLOBIN; Value: 8.7; Range: 12.0-16.0; Abnormal: Below low normal; Units: g/dl; Status: F Test: HEMATOCRIT; Value: 29.6; Range: 36.0-47.0; Abnormal: Below low normal; Units: %; Status: F Test: MEAN CORPUSCULAR VOLUME; Value: 81.6; Range: 80.0-96.0; Units: fl; Status: F Test: MEAN CORPUSCULAR HEMOGLOBIN; Value: 23.9; Range: 27.0-33.0; Abnormal: Below low normal; Units: pg; Status: F Test: MEAN CORPUSCULAR HGB CONC; Value: 29.3; Range: 32.0-36.5; Abnormal: Below low normal; Units: g/dl; Status: F Test: RED CELL DISTRIBUTION WIDTH; Value: 20.3; Range: 11.5-14.5; Abnormal: Above high normal; Units: %; Status: F Test: PLATELET COUNT, AUTOMATED; Value: 437; Range: 150-450; Units: k/mm3; Status: F Test: NEUTROPHILS %; Value: 85.3; Range: 36.0-66.0; Abnormal: Above high normal; Units: %; Status: F Test: LYMPH %; Value: 4.9; Range: 24.0-44.0; Abnormal: Below low normal; Units: %; Status: F Test: MONO %; Value: 5.0; Range: 0.0-5.0; Units: %; Status: F Test: EOS %; Value: 1.3; Range: 0.0-3.0; Units: %; Status: F Test: BASO %; Value: 0.1; Range: 0.0-1.0; Units: %; Status: F Test: LARGE UNSTAINED CELL %; Value: 3.4; Range: 0.0-4.0; Units: %; Status: F Test: NEUTROPHILS #; Value: 4.5; Range: 1.8-7.7; Units: K/mm3; Status: F Test: LYMPH #; Value: 0.3; Range: 1.5-4.5; Abnormal: Below low normal; Units: K/mm3; Status: F Test: MONO #; Value: 0.3; Range: 0.0-0.8; Units: K/mm3; Status: F Test: EOS #; Value: 0.1; Range: 0.0-0.50; Units: K/mm3; Status: F Test: BASO #; Value: 0.0; Range: 0.0-0.2; Units: K/mm3; Status: F Test: LARGE UNSTAINED CELL #; Value: 0.2; Range: 0.0-0.4; Units: K/mm3; Status: F Lab Order: MED Profile; SPEC'M 07/01/16 01:53 Test: GLUCOSE, FASTING; Value: 154; Range: 83-110; Abnormal: Above high normal; Units: MG/DL; Status: F Test: BLOOD UREA NITROGEN; Value: 18; Range: 7-18; Units: MG/DL; Status: F Test: CREATININE FOR GFR; Value: 0.72; Range: 0.55-1.02; Units: MG/DL; Status: F Test: GLOMERULAR FILTRATION RATE; Value: > 60.0; Range: >32; Status: F Test: SODIUM LEVEL; Value: 137; Range: 136-145; Units: MEQ/L; Status: F Test: POTASSIUM SERUM; Value: 4.6; Range: 3.5-5.1; Units: MEQ/L; Status: F Test: CHLORIDE LEVEL; Value: 103; Range: 98-107; Units: MEQ/L; Status: F Test: CARBON DIOXIDE LEVEL; Value: 26; Range: 21-32; Units: MEQ/L; Status: F Test: ANION GAP; Value: 8; Range: 8-16; Units: MEQ/L; Status: F Test: CALCIUM LEVEL; Value: 9.2; Range: 8.8-10.2; Units: MG/DL; Status: F Test Note: ; Units are mL/min/1.73 m2 Chronic Kidney Disease Staging per NKF: Stage I & II GFR >=60 Normal to Mildly Decreased Stage III GFR 30-59 Moderately Decreased Stage IV GFR 15-29 Severely Decreased Stage V GFR <15 Very Little GFR Left ESRD GFR <15 on INSERTING PRESS OPERATOR Radiology Order: CT ABD & PELVIS: IV Contrast Only Test: CT ABD & PELVIS: IV Contrast Only REASON FOR EXAMINATION: eval for RLQ abscess; ; CLINICAL HISTORY: Abdominal pain.; TECHNIQUE: Multiple axial, sagittal and coronal CT images were obtained through the abdomen and pelvi; s after administration of intravenous contrast material.; COMMENTS:; The liver is of uniform attenuation without mass or defect. There is no intra or extrahepatic biliary; ductal dilatation. The spleen is normal. The gallbladder is surgically absent. The pancreas is of no; rmal contour and attenuation characteristics. There is no evidence of adrenal mass.; Both kidneys demonstrate prompt and equal nephrograms. The kidneys are normal in size, shape and conf; iguration. There is no evidence of renal or ureteral mass. No renal or ureteral calculi are identifie; d. There is no hydroureter or hydronephrosis.; No evidence for appendicitis. No evidence for small or large bowel obstruction. There is no evidence; of abdominal ascites or lymphadenopathy.; There is no evidence of intrinsic or extrinsic bladder mass. There is no pelvic ascites or lymphadeno; petey. Fluid-filled small bowel suggestive of enteritis. Fluid-filled colon. Sigmoid diverticulosis.; Thickened bladder. Hypodensity in the endometrial cavity.; Images of the lung bases show no evidence of pleural or parenchymal mass. There are no pleural effusi; ons. Bilateral basilar atelectatic pulmonary changes.; The bony structures are free of lytic or blastic lesions. Multilevel degenerative changes are seen in; volving the thoracolumbar spine. Scattered calcifications are seen involving the aorta and major bran; ches compatible with atherosclerosis.; IMPRESSION:; Enterocolitis.; Cystitis.; Bilateral basilar atelectatic pulmonary changes.; Thank you for your kind referral of this patient.; ; Outcome: 05:25 Discharge ordered by Provider. cs11 05:34 Discharge Assessment: Patient awake, alert and oriented x 3. No cognitive and/or mv5 functional deficits noted. Patient verbalized understanding of disposition instructions. patient administered narcotics - yes. Pt provided with safe discharge. The following High Risk Discharge criteria are identified: None. Discharged to home with family. Condition: stable. Discharge instructions given to patient, Demonstrated understanding of instructions, Pt was receptive of discharge instructions/ teaching. CT Study completed. Property sent home with patient. 05:37 Patient left the ED. mv5 Signatures: Dispatcher [employer] EDEsperanza Wright RN RN mcp Zecher, Calvin, RN RN cz Barnhardt, Gloria, Seb Grubbs, DO DO cs11 Winsome Keith gr2 Mauro Zaidi, Reg Reg pm4 Reshma Rivas,RN RN mv5 Chart Complete MTDD
--- NOTE | 2016-07-08 09:35 | EDDOCDS ---
Physician Documentation [facility] Name: Kathy Dickson Age: 81 yrs Sex: Female : 1935 Arrival Date: 06/30/2016 Time: 23:06 Bed 6 Private MD: Charan Hay Disposition: 07/01/16 05:25 Discharged to Home/Self Care. 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 - Condition is Stable. - Prescriptions for Bactrim DS 800- 160 mg Oral Tablet - take 1 tablet by ORAL route every 12 hours for 5 days; 10 tablet. - Medication Reconciliation, Local Pharmacy Hours form. - Follow up: Private Physician; When: Call to arrange an appointment; Reason: Recheck today's complaints. - Problem is an ongoing problem. - Symptoms are unchanged. Historical: - Allergies: Aspirin; - Home Meds: 1. metformin 1,000 mg Oral TG24 1 tab 2 times per day 2. lisinopril 40 mg Oral tab 1 tab once daily 3. simvastatin 40 mg Oral tab 1 tab once daily 4. Sertraline 50 mg daily 5. thyroxine 25 mcg daily 6. repaglinide 2 mg oral tab 1 tab 3 times per day 7. pioglitazone 45 mg oral tab 1 tab once daily 8. Vitamin D Oral 1,000 unit twice a day 9. multivitamin Oral tab 1 tablet daily 10. Zantac 150 mg Oral cap as needed 11. Zyrtec 10 mg Oral tab 1 tab as needed - PMHx: Hypertension; Diabetes - NIDDM: controlled; Hypothyroidism; Hypercholesterolemia; Cancer, Cervix; - PSHx: Cholecystectomy; Appendectomy; - Social history: Smoking status: Patient states former smoker of tobacco. No barriers to communication noted, The patient speaks fluent Angolan. - Family history: Not pertinent. - : The pt / caregiver states he / she is not on anticoagulants. Home medication list is obtained from the patient. - Exposure Risk Screening:: None identified. Vital Signs: 06/30 23:07 BP 155 / 68; Pulse 104; Resp 18 S; Temp 98.0(O); Pulse Ox 97% on R/A; Weight 88 kg / gr2 194.01 lbs (R); Height 5 ft. 3 in. (160.02 cm) (R); Pain 5/10; 02/05 02:03 BP 134 / 63 (auto/); Pulse 98; Resp 18; mv5 02:05 Pulse Ox 98% ; mv5 02:33 BP 119 / 60 (auto/); mv5 02:33 Pulse Ox 96% ; mv5 03:56 BP 131 / 68 (auto/); mv5 03:57 Pulse Ox 98% ; mv5 04:06 BP 168 / 75 (auto/); mv5 04:07 Pulse Ox 96% ; mv5 04:33 BP 165 / 80 (auto/); mv5 04:33 Pulse Ox 98% ; mv5 05:03 BP 142 / 65 (auto/); mv5 05:03 BP 142 / 65; Pulse 88; Resp 18; Temp 98.2(O); Pulse Ox 99% ; mv5 02/04 23:07 Body Mass Index 34.37 (88.00 kg, 160.02 cm) gr2 MDM: 01:44 Wound Culture - All Other Sources Ordered. EDMS 01:50 IV Saline Lock ordered. cs11 01:50 CBC with Diff Ordered. EDMS 01:51 MED Profile Ordered. EDMS 02:23 Financial registration complete. pm4 02:33 [facility] Payment Agreement was scanned into [employer] and attached to record. pm4 03:24 CBC with Diff Reviewed. cs11 03:24 MED Profile Reviewed. cs11 03:25 NS 0.9% 500 ml IV at bolus once ordered. cs11 03:26 CT ABD & PELVIS: IV Contrast Only Ordered. EDMS 03:26 morphine 2 mg IVP once ordered. cs11 05:18 CT ABD & PELVIS: IV Contrast Only Reviewed. cs11 05:24 Trimethoprim-Sulfamethoxazole 160 mg-800 mg (DS) 1 tabs PO once ordered. cs11 12:45 T-Sheet-- Draft Copy was scanned into [employer] and attached to record. gb Administered Medications: 03:40 Drug: NS 0.9% 500 ml [sodium chloride 0.9 % intravenous solution] Route: IV; Rate: mv5 bolus; Site: left antecubital; 04:29 Follow up: IV Status: Completed infusion mv5 03:40 Drug: morphine 2 mg [morphine 2 mg/mL intravenous cartridge (1 mL)] Route: IVP; Site: mv5 left antecubital; 04:29 Follow up: Response: No Adverse Reaction; Pain is decreased mv5 05:30 Drug: Trimethoprim-Sulfamethoxazole 1 tabs [sulfamethoxazole 800 mg-trimethoprim 160 mg mv5 tablet (1 tabs)] Route: PO; 05:36 Follow up: Response: No Adverse Reaction mv5 Signatures: Dispatcher [employer] Esperanza Blood, RN RN [facility] Beth Ramsay, Reg Reg gb Seb Cullen, DO cs11 Mauro Zaidi, Reg Reg pm4 Reshma Rivas RN RN mv5 The chart was reviewed and I authenticate all verbal orders and agree with the evaluation and treatment provided.Attachments: 02:33 [facility] Payment Agreement pm4 12:45 T-Sheet-- Draft Copy gb Chart Complete MTDD
--- NOTE | 2016-07-08 09:35 | EDDOCDS ---
Physician Documentation [facility] Name: Kathy Dickson Age: 81 yrs Sex: Female : 1935 Arrival Date: 06/30/2016 Time: 23:06 Bed 6 Private MD: Charan Hay Disposition: 07/01/16 05:25 Discharged to Home/Self Care. 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 - Condition is Stable. - Prescriptions for Bactrim DS 800- 160 mg Oral Tablet - take 1 tablet by ORAL route every 12 hours for 5 days; 10 tablet. - Medication Reconciliation, Local Pharmacy Hours form. - Follow up: Private Physician; When: Call to arrange an appointment; Reason: Recheck today's complaints. - Problem is an ongoing problem. - Symptoms are unchanged. Historical: - Allergies: Aspirin; - Home Meds: 1. metformin 1,000 mg Oral TG24 1 tab 2 times per day 2. lisinopril 40 mg Oral tab 1 tab once daily 3. simvastatin 40 mg Oral tab 1 tab once daily 4. Sertraline 50 mg daily 5. thyroxine 25 mcg daily 6. repaglinide 2 mg oral tab 1 tab 3 times per day 7. pioglitazone 45 mg oral tab 1 tab once daily 8. Vitamin D Oral 1,000 unit twice a day 9. multivitamin Oral tab 1 tablet daily 10. Zantac 150 mg Oral cap as needed 11. Zyrtec 10 mg Oral tab 1 tab as needed - PMHx: Hypertension; Diabetes - NIDDM: controlled; Hypothyroidism; Hypercholesterolemia; Cancer, Cervix; - PSHx: Cholecystectomy; Appendectomy; - Social history: Smoking status: Patient states former smoker of tobacco. No barriers to communication noted, The patient speaks fluent Hong Konger. - Family history: Not pertinent. - : The pt / caregiver states he / she is not on anticoagulants. Home medication list is obtained from the patient. - Exposure Risk Screening:: None identified. Vital Signs: 06/30 23:07 BP 155 / 68; Pulse 104; Resp 18 S; Temp 98.0(O); Pulse Ox 97% on R/A; Weight 88 kg / gr2 194.01 lbs (R); Height 5 ft. 3 in. (160.02 cm) (R); Pain 5/10; 02/05 02:03 BP 134 / 63 (auto/); Pulse 98; Resp 18; mv5 02:05 Pulse Ox 98% ; mv5 02:33 BP 119 / 60 (auto/); mv5 02:33 Pulse Ox 96% ; mv5 03:56 BP 131 / 68 (auto/); mv5 03:57 Pulse Ox 98% ; mv5 04:06 BP 168 / 75 (auto/); mv5 04:07 Pulse Ox 96% ; mv5 04:33 BP 165 / 80 (auto/); mv5 04:33 Pulse Ox 98% ; mv5 05:03 BP 142 / 65 (auto/); mv5 05:03 BP 142 / 65; Pulse 88; Resp 18; Temp 98.2(O); Pulse Ox 99% ; mv5 02/04 23:07 Body Mass Index 34.37 (88.00 kg, 160.02 cm) gr2 MDM: 01:44 Wound Culture - All Other Sources Ordered. EDMS 01:50 IV Saline Lock ordered. cs11 01:50 CBC with Diff Ordered. EDMS 01:51 MED Profile Ordered. EDMS 02:23 Financial registration complete. pm4 02:33 [facility] Payment Agreement was scanned into [employer] and attached to record. pm4 03:24 CBC with Diff Reviewed. cs11 03:24 MED Profile Reviewed. cs11 03:25 NS 0.9% 500 ml IV at bolus once ordered. cs11 03:26 CT ABD & PELVIS: IV Contrast Only Ordered. EDMS 03:26 morphine 2 mg IVP once ordered. cs11 05:18 CT ABD & PELVIS: IV Contrast Only Reviewed. cs11 05:24 Trimethoprim-Sulfamethoxazole 160 mg-800 mg (DS) 1 tabs PO once ordered. cs11 12:45 T-Sheet-- Draft Copy was scanned into [employer] and attached to record. gb Administered Medications: 03:40 Drug: NS 0.9% 500 ml [sodium chloride 0.9 % intravenous solution] Route: IV; Rate: mv5 bolus; Site: left antecubital; 04:29 Follow up: IV Status: Completed infusion mv5 03:40 Drug: morphine 2 mg [morphine 2 mg/mL intravenous cartridge (1 mL)] Route: IVP; Site: mv5 left antecubital; 04:29 Follow up: Response: No Adverse Reaction; Pain is decreased mv5 05:30 Drug: Trimethoprim-Sulfamethoxazole 1 tabs [sulfamethoxazole 800 mg-trimethoprim 160 mg mv5 tablet (1 tabs)] Route: PO; 05:36 Follow up: Response: No Adverse Reaction mv5 Signatures: Dispatcher [employer] Esperanza Blood, RN RN [facility] Beth Ramsay, Reg Reg gb Seb Cullen, DO cs11 Mauro Zaidi, Reg Reg pm4 Reshma Rivas RN RN mv5 The chart was reviewed and I authenticate all verbal orders and agree with the evaluation and treatment provided.Attachments: 02:33 [facility] Payment Agreement pm4 12:45 T-Sheet-- Draft Copy gb Chart Complete MTDD
--- NOTE | 2016-07-08 09:35 | EDDOCDS ---
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 Adult Sepsis Screening: The patient does not have new or worsening altered mentation. Patient's respiratory rate is less than 22. Systolic blood pressure is greater than 100. Patient has a qSOFA score of 0- Negative Sepsis Screen. Suicide/Homicide risk assessment- the patient denies having any suicidal and/or homicidal ideations and does not present with any other emotional, behavioral or mental health complaints. Status: Patient is not a ambulatory service representative or dependent. Transition of care: patient was not received from another setting of care. 23:14 Acuity: ROSARIO Level 3 [facility] 23:14 Method Of Arrival: Walkin/Carried/Asstd [facility] Triage Assessment: 23:20 General: Appears uncomfortable, Behavior is cooperative. Pain: Location: right femoral mcp area Pain currently is 3 out of 10 on a pain scale. Neurological: No deficits noted. Respiratory: Airway is patent Respiratory effort is even, unlabored. Derm: Skin is pink, warm & dry. Historical: - Allergies: Aspirin; - Home Meds: 1. metformin 1,000 mg Oral TG24 1 tab 2 times per day 2. lisinopril 40 mg Oral tab 1 tab once daily 3. simvastatin 40 mg Oral tab 1 tab once daily 4. Sertraline 50 mg daily 5. thyroxine 25 mcg daily 6. repaglinide 2 mg oral tab 1 tab 3 times per day 7. pioglitazone 45 mg oral tab 1 tab once daily 8. Vitamin D Oral 1,000 unit twice a day 9. multivitamin Oral tab 1 tablet daily 10. Zantac 150 mg Oral cap as needed 11. Zyrtec 10 mg Oral tab 1 tab as needed - PMHx: Hypertension; Diabetes - NIDDM: controlled; Hypothyroidism; Hypercholesterolemia; Cancer, Cervix; - PSHx: Cholecystectomy; Appendectomy; - Social history: Smoking status: Patient states former smoker of tobacco. No barriers to communication noted, The patient speaks fluent Uzbek. - Family history: Not pertinent. - : The pt / caregiver states he / she is not on anticoagulants. Home medication list is obtained from the patient. - Exposure Risk Screening:: None identified. Screenin/05 00:47 Screening information is obtained from the patient. Fall risk: At risk due to gait mv5 disturbance, uses cane at baseline.. Assistance ADL's: requires no assistance with activities of daily living. Abuse/DV Screen: The patient / caregiver reports he/she is: not in a situation that causes fear, pain or injury. Nutritional screening: No deficits noted. home support is adequate. 05:34 Advance Directives: There is no active DNR order. mv5 Assessment: 00:47 General: Appears uncomfortable, well nourished, well groomed, Behavior is cooperative, mv5 pleasant, Smells of wound exudate.. Pain: Location: right femoral area. Neurological: Level of Consciousness is awake, alert, Oriented to person, place, time. Cardiovascular: Capillary refill < 3 seconds. Respiratory: Airway is patent Respiratory effort is even, unlabored, labored. GI: Bowel sounds present X 4 quads. Abd is soft Abd is tender to palpation tender in right groin fold. Right groin firmer than left. Pt and family report several radiation treatments over the last 6 weeks to that area. Skin not intact. GI: Reports Pain is 6 out of 10 on a pain scale. pain in area of radiation burn/wound. Derm:. Injury Description: Burn sustained to right femoral area is "radiation burn" per pt and family r/t treatment of cervical CA. 01:18 General: Appears in no apparent distress, Pt awaiting ERP eval. mv5 02:52 General: Appears in no apparent distress, Pt assisted to restroom and returned to [facility] stretcher safely.. 03:58 General: Pt to CT and returned without incident.. mv5 Vital Signs: 06/30 23:07 BP 155 / 68; Pulse 104; Resp 18 S; Temp 98.0(O); Pulse Ox 97% on R/A; Weight 88 kg (R); gr2 Height 5 ft. 3 in. (160.02 cm) (R); Pain 5/10; 02/05 02:03 BP 134 / 63 (auto/); Pulse 98; Resp 18; mv5 02:05 Pulse Ox 98% ; mv5 02:33 BP 119 / 60 (auto/); mv5 02:33 Pulse Ox 96% ; mv5 03:56 BP 131 / 68 (auto/); mv5 03:57 Pulse Ox 98% ; mv5 04:06 BP 168 / 75 (auto/); mv5 04:07 Pulse Ox 96% ; mv5 04:33 BP 165 / 80 (auto/); mv5 04:33 Pulse Ox 98% ; mv5 05:03 BP 142 / 65 (auto/); mv5 05:03 BP 142 / 65; Pulse 88; Resp 18; Temp 98.2(O); Pulse Ox 99% ; mv5 02 23:07 Body Mass Index 34.37 (88.00 kg, 160.02 cm) gr2 Vitals: 06/30 23:07 Log In Time: June 30, 2016 at 23:07. gr2 ED Course: 23:07 Patient visited by Winsome Keith. gr2 23:07 Charan Hay is Private Physician. gr2 23:07 Patient moved to Waiting gr2 23:11 Patient visited by Winsome Keith. gr2 23:11 Patient moved to Pre RCE gr2 23:[address] [facility] 23:20 Patient visited by Esperanza Danielson RN. [facility] 02/05 00:37 Lotus Bauer, SIM is Primary Nurse. cz 00:37 Patient moved to 6 cz 00:47 Patient visited by Reshma Rivas RN. mv5 00:47 The patient / caregiver is instructed regarding the plan of care and ED course. mv5 01:18 Patient visited by Reshma Rivas RN. mv5 01:20 Seb Cullen DO is Attending Physician. cs11 01:36 Patient visited by Seb Cullen DO. cs11 01:47 Wound Culture - All Other Sources Sent. mv5 02:02 Inserted saline lock: 20 gauge in left antecubital area and blood collected. The mv5 patient tolerated the procedure well. 02:02 MED Profile Sent. mv5 02:02 CBC with Diff Sent. mv5 02:22 Patient visited by Reshma Rivas RN. mv5 02:32 Primary Nurse role handed off by Lotus Bauer RN mv5 02:32 Reshma Rivas,SIM is Primary Nurse. mv5 02:33 [facility] Payment Agreement was scanned into [employer] and attached to record. pm4 02:36 Patient name changed from Kathy\\S\\\\S\\Yessi\\S\\ to Kathy\\S\\ \\S\\Yessi. EDMS 02:52 Patient visited by Reshma Rivas RN. mv5 03:23 Patient visited by Reshma Rivas RN. mv5 03:57 Patient visited by Reshma Rivas RN. mv5 04:28 Patient visited by Reshma Rivas RN. mv5 04:41 CT ABD & PELVIS: IV Contrast Only Returned. EDMS 05:34 No procedures done that require assistance. mv5 05:34 Discontinued intact, bleeding controlled, pressure dressing applied, No mv5 redness/swelling at site. 12:45 T-Sheet-- Draft Copy was scanned into [employer] and attached to record. gb Administered Medications: 03:40 Drug: NS 0.9% 500 ml [sodium chloride 0.9 % intravenous solution] Route: IV; Rate: mv5 bolus; Site: left antecubital; 04:29 Follow up: IV Status: Completed infusion mv5 03:40 Drug: morphine 2 mg [morphine 2 mg/mL intravenous cartridge (1 mL)] Route: IVP; Site: mv5 left antecubital; 04:29 Follow up: Response: No Adverse Reaction; Pain is decreased mv5 05:30 Drug: Trimethoprim-Sulfamethoxazole 1 tabs [sulfamethoxazole 800 mg-trimethoprim 160 mg mv5 tablet (1 tabs)] Route: PO; 05:36 Follow up: Response: No Adverse Reaction mv5 Order Results: Lab Order: Wound Culture - All Other Sources; SPEC'M 07/01/16 01:44 Test: WOUND CULTURE; Value: <EXTERNAL COMMENT eCWMed> FULL REPORT IN LAB NOTES (eCW and Medent).; Status: F Test: WOUND CULTURE; Value: ORGANISM 1: STAPHYLOCOCCUS SP COAG NEG; Status: F Test: WOUND CULTURE; Value: STAPHYLOCOCCUS SP COAG NEG; Status: F Test: WOUND CULTURE; Value: QUANTITY OF GROWTH MODERATE; Status: F Test: WOUND CULTURE; Value: STREP ANGINOSUS (S. MILLERI); Status: F Test: WOUND CULTURE; Value: QUANTITY OF GROWTH MODERATE; Status: F Test: WOUND CULTURE; Value: ORGANISM 2: STREP ANGINOSUS (S. MILLERI); Status: F Test: WOUND CULTURE; Value: STAPHYLOCOCCUS SP COAG NEG; Status: F Test: WOUND CULTURE; Value: QUANTITY OF GROWTH MODERATE; Status: F Test: WOUND CULTURE; Value: STREP ANGINOSUS (S. MILLERI); Status: F Test: WOUND CULTURE; Value: QUANTITY OF GROWTH MODERATE; Status: F Test: WOUND CULTURE; Value: GRAM POS SENSI - VITEK 67; Status: F Test: WOUND CULTURE; Value: Method: VIT2; Status: F Test: WOUND CULTURE; Value: TETRACYCLINE 2 S; Status: F Test: WOUND CULTURE; Value: PENICILLIN G >=0.5 R; Status: F Test: WOUND CULTURE; Value: TRIMETHOPRIM/SULFAMETHOXAZOLE 40 S; Status: F Test: WOUND CULTURE; Value: ERYTHROMYCIN <=0.25 S; Status: F Test: WOUND CULTURE; Value: GENTAMICIN <=0.5 S; Status: F Test: WOUND CULTURE; Value: CLINDAMYCIN <=0.25 S; Status: F Test: WOUND CULTURE; Value: OXACILLIN <=0.25 S; Status: F Test: WOUND CULTURE; Value: VANCOMYCIN 1 S; Status: F Test: WOUND CULTURE; Value: LINEZOLID (ZYVOX) 1 S; Status: F Test: WOUND CULTURE; Value: GRAM POS SENSI - ST02; Status: F Test: WOUND CULTURE; Value: Method: VIT2; Status: F Test: WOUND CULTURE; Value: TETRACYCLINE 2 S; Status: F Test: WOUND CULTURE; Value: PENICILLIN G <=0.06 S; Status: F Test: WOUND CULTURE; Value: AMPICILLIN <=0.25 S; Status: F Test: WOUND CULTURE; Value: ERYTHROMYCIN <=0.12 S; Status: F Test: WOUND CULTURE; Value: LEVOFLOXACIN <=0.25 S; Status: F Test: WOUND CULTURE; Value: VANCOMYCIN 0.5 S; Status: F Test: WOUND CULTURE; Value: CEFTRIAXONE <=0.12 S; Status: F Test: WOUND CULTURE; Value: CEFOTAXIME <=0.12 S; Status: F Lab Order: CBC with Diff; SPEC'M 07/01/16 01:53 Test: WHITE BLOOD COUNT; Value: 5.3; Range: 4.0-10.0; Units: K/mm3; Status: F Test: RED BLOOD COUNT; Value: 3.63; Range: 4.00-5.40; Abnormal: Below low normal; Units: M/mm3; Status: F Test: HEMOGLOBIN; Value: 8.7; Range: 12.0-16.0; Abnormal: Below low normal; Units: g/dl; Status: F Test: HEMATOCRIT; Value: 29.6; Range: 36.0-47.0; Abnormal: Below low normal; Units: %; Status: F Test: MEAN CORPUSCULAR VOLUME; Value: 81.6; Range: 80.0-96.0; Units: fl; Status: F Test: MEAN CORPUSCULAR HEMOGLOBIN; Value: 23.9; Range: 27.0-33.0; Abnormal: Below low normal; Units: pg; Status: F Test: MEAN CORPUSCULAR HGB CONC; Value: 29.3; Range: 32.0-36.5; Abnormal: Below low normal; Units: g/dl; Status: F Test: RED CELL DISTRIBUTION WIDTH; Value: 20.3; Range: 11.5-14.5; Abnormal: Above high normal; Units: %; Status: F Test: PLATELET COUNT, AUTOMATED; Value: 437; Range: 150-450; Units: k/mm3; Status: F Test: NEUTROPHILS %; Value: 85.3; Range: 36.0-66.0; Abnormal: Above high normal; Units: %; Status: F Test: LYMPH %; Value: 4.9; Range: 24.0-44.0; Abnormal: Below low normal; Units: %; Status: F Test: MONO %; Value: 5.0; Range: 0.0-5.0; Units: %; Status: F Test: EOS %; Value: 1.3; Range: 0.0-3.0; Units: %; Status: F Test: BASO %; Value: 0.1; Range: 0.0-1.0; Units: %; Status: F Test: LARGE UNSTAINED CELL %; Value: 3.4; Range: 0.0-4.0; Units: %; Status: F Test: NEUTROPHILS #; Value: 4.5; Range: 1.8-7.7; Units: K/mm3; Status: F Test: LYMPH #; Value: 0.3; Range: 1.5-4.5; Abnormal: Below low normal; Units: K/mm3; Status: F Test: MONO #; Value: 0.3; Range: 0.0-0.8; Units: K/mm3; Status: F Test: EOS #; Value: 0.1; Range: 0.0-0.50; Units: K/mm3; Status: F Test: BASO #; Value: 0.0; Range: 0.0-0.2; Units: K/mm3; Status: F Test: LARGE UNSTAINED CELL #; Value: 0.2; Range: 0.0-0.4; Units: K/mm3; Status: F Lab Order: MED Profile; [facility]' 07/01/16 01:53 Test: GLUCOSE, FASTING; Value: 154; Range: 83-110; Abnormal: Above high normal; Units: MG/DL; Status: F Test: BLOOD UREA NITROGEN; Value: 18; Range: 7-18; Units: MG/DL; Status: F Test: CREATININE FOR GFR; Value: 0.72; Range: 0.55-1.02; Units: MG/DL; Status: F Test: GLOMERULAR FILTRATION RATE; Value: > 60.0; Range: >32; Status: F Test: SODIUM LEVEL; Value: 137; Range: 136-145; Units: MEQ/L; Status: F Test: POTASSIUM SERUM; Value: 4.6; Range: 3.5-5.1; Units: MEQ/L; Status: F Test: CHLORIDE LEVEL; Value: 103; Range: 98-107; Units: MEQ/L; Status: F Test: CARBON DIOXIDE LEVEL; Value: 26; Range: 21-32; Units: MEQ/L; Status: F Test: ANION GAP; Value: 8; Range: 8-16; Units: MEQ/L; Status: F Test: CALCIUM LEVEL; Value: 9.2; Range: 8.8-10.2; Units: MG/DL; Status: F Test Note: ; Units are mL/min/1.73 m2 Chronic Kidney Disease Staging per NKF: Stage I & II GFR >=60 Normal to Mildly Decreased Stage III GFR 30-59 Moderately Decreased Stage IV GFR 15-29 Severely Decreased Stage V GFR <15 Very Little GFR Left ESRD GFR <15 on [employer]ENDANT Radiology Order: CT ABD & PELVIS: IV Contrast Only Test: CT ABD & PELVIS: IV Contrast Only REASON FOR EXAMINATION: eval for RLQ abscess; ; CLINICAL HISTORY: Abdominal pain.; TECHNIQUE: Multiple axial, sagittal and coronal CT images were obtained through the abdomen and pelvi; s after administration of intravenous contrast material.; COMMENTS:; The liver is of uniform attenuation without mass or defect. There is no intra or extrahepatic biliary; ductal dilatation. The spleen is normal. The gallbladder is surgically absent. The pancreas is of no; rmal contour and attenuation characteristics. There is no evidence of adrenal mass.; Both kidneys demonstrate prompt and equal nephrograms. The kidneys are normal in size, shape and conf; iguration. There is no evidence of renal or ureteral mass. No renal or ureteral calculi are identifie; d. There is no hydroureter or hydronephrosis.; No evidence for appendicitis. No evidence for small or large bowel obstruction. There is no evidence; of abdominal ascites or lymphadenopathy.; There is no evidence of intrinsic or extrinsic bladder mass. There is no pelvic ascites or lymphadeno; petey. Fluid-filled small bowel suggestive of enteritis. Fluid-filled colon. Sigmoid diverticulosis.; Thickened bladder. Hypodensity in the endometrial cavity.; Images of the lung bases show no evidence of pleural or parenchymal mass. There are no pleural effusi; ons. Bilateral basilar atelectatic pulmonary changes.; The bony structures are free of lytic or blastic lesions. Multilevel degenerative changes are seen in; volving the thoracolumbar spine. Scattered calcifications are seen involving the aorta and major bran; ches compatible with atherosclerosis.; IMPRESSION:; Enterocolitis.; Cystitis.; Bilateral basilar atelectatic pulmonary changes.; Thank you for your kind referral of this patient.; ; Outcome: 05:25 Discharge ordered by Provider. cs11 05:34 Discharge Assessment: Patient awake, alert and oriented x 3. No cognitive and/or mv5 functional deficits noted. Patient verbalized understanding of disposition instructions. patient administered narcotics - yes. Pt provided with safe discharge. The following High Risk Discharge criteria are identified: None. Discharged to home with family. Condition: stable. Discharge instructions given to patient, Demonstrated understanding of instructions, Pt was receptive of discharge instructions/ teaching. CT Study completed. Property sent home with patient. 05:37 Patient left the ED. mv5 Signatures: Dispatcher [employer] Esperanza Blood, RN RN Newton Kinney, SIM RN cz Beth Ramsay, Reg Reg gb Seb Cullen, DO cs11 Winsome Keith gr2 Mauro Zaidi, Reg Reg pm4 Reshma Rivas RN RN mv5 Chart Complete MTDD
== END 2016-07-01 05:37 | disposition home or self-care (01) ==
LOC: M ED 23:06
DX: L59.8 Other specified disorders of the skin and subcutaneous tissue related to radiation (principal); N30.00 Acute cystitis without hematuria; C53.9 Malignant neoplasm of cervix uteri, unspecified; I10 Essential (primary) hypertension; E11.9 Type 2 diabetes mellitus without complications; E03.9 Hypothyroidism, unspecified; E78.00 Pure hypercholesterolemia, unspecified; Z90.49 Acquired absence of other specified parts of digestive tract; Z90.89 Acquired absence of other organs; Z87.891 Personal history of nicotine dependence; Z79.899 Other long term (current) drug therapy; Z88.6 Allergy status to analgesic agent
CPT/HCPCS: 36415; 74177; 80048; 85025; 87070; 87077; 87186; 96361; 96374; 99284; Q9967

== ENCOUNTER 2016-07-12 11:46 | Inpatient (IN) | payer MEDICARE, OTHER ==
[~2016-07-12] VITALS: Ht 157.5 cm; Wt 87.1 kg
[2016-07-12 12:44] LABS: BASO % 0.4 % (0.0-1.0); EOS % 0.5 % (0.0-3.0); LARGE UNSTAINED CELL # 0.1 K/mm3 (0.0-0.4); LARGE UNSTAINED CELL % 3.7 % (0.0-4.0); LYMPH # 0.4 K/mm3 (1.5-4.5); LYMPH % 10.3 % (24.0-44.0); MEAN CORPUSCULAR HEMOGLOBIN 24.6 pg (27.0-33.0); MEAN CORPUSCULAR HGB CONC 30.1 g/dl (32.0-36.5); MONO # 0.2 K/mm3 (0.0-0.8); MONO % 4.6 % (0.0-5.0); NEUTROPHILS # 3.1 K/mm3 (1.8-7.7); NEUTROPHILS % 80.5 % (36.0-66.0); PLATELET COUNT, AUTOMATED 303 k/mm3 (150-450); RED CELL DISTRIBUTION WIDTH 21.3 % (11.5-14.5); WHITE BLOOD COUNT 3.8 K/mm3 (4.0-10.0)
[2016-07-12] MEDS ORDERED: LISI40TAB PO (12:57)
[2016-07-12] MEDS ORDERED: ZYRT10TA2 PO (12:57)
[2016-07-12] MEDS ORDERED: SILV-4 TOP (12:57)
[2016-07-12] MEDS ORDERED: VITMTA PO (12:57)
[2016-07-12] MEDS ORDERED: PIOG45TA2 PO (12:57)
[2016-07-12] MEDS ORDERED: SIMV40TA2 PO (12:57)
[2016-07-12] MEDS ORDERED: VITA200015 PO (12:57)
[2016-07-12] MEDS ORDERED: METF-415 PO (12:57)
[2016-07-12] MEDS ORDERED: ZANT1TAB PO (12:57)
[2016-07-12] MEDS ORDERED: REPA1TAB6 PO (12:57)
[2016-07-12] MEDS ORDERED: LEVO25TA5 PO (12:58)
[2016-07-12 13:02] LABS: ANION GAP 10 MEQ/L (8-16); BLOOD UREA NITROGEN 11 MG/DL (7-18); CALCIUM LEVEL 9.4 MG/DL (8.8-10.2); CARBON DIOXIDE LEVEL 25 MEQ/L (21-32); CHLORIDE LEVEL 101 MEQ/L (98-107); CREATININE FOR GFR 0.66 MG/DL (0.55-1.02); GLOMERULAR FILTRATION RATE > 60.0 (>32); GLUCOSE, FASTING 146 MG/DL (83-110); POTASSIUM SERUM 4.7 MEQ/L (3.5-5.1); SODIUM LEVEL 136 MEQ/L (136-145)
[2016-07-12] MEDS ORDERED: CEFTAROLINE FOSAMIL 600 MG VIAL (TEFLARO) As Ordered ONE (13:11)
[2016-07-12] MEDS ORDERED: ACETAMINOPHEN TAB 650MG DOSE (2X325MG) PO PRN (13:15)
[2016-07-12] MEDS ORDERED: CETIRIZINE (ZyrTEC) 10 MG TAB PO PRN (13:30)
[2016-07-12] MEDS ORDERED: GLUCAGON FOR INJ 1 MG VIAL (J1610) SC PRN (13:30)
[2016-07-12] MEDS ORDERED: GLUCOSE 4 GM CHEW TABLET PO PRN (13:30)
[2016-07-12] MEDS ORDERED: DEXTROSE 50% 50 ML SYRINGE IV PRN (13:30)
[2016-07-12] MEDS ORDERED: DIAPER RELIEF OINT (DESITIN) 60GM TOP ONE (13:45)
--- NOTE | 2016-07-12 14:30 | HPE ---
DATE OF ADMISSION: 07/12/2016 PRIMARY CARE PROVIDER: Tyron Valenzuela HISTORY OF PRESENT ILLNESS: This patient is an 81-year-old female with a past medical history significant for cervical cancer, diabetes, hypercholesterolemia, hypertension, and hypothyroidism who presented to [facility] on 07/12/2016 for worsening right inguinal wound. The patient was diagnosed with cervical cancer in 2014. The patient has been receiving radiation therapy from Dr. Hay. She was only able to tolerate 25 sessions due to the development of severe burn and the last radiation therapy was in 06/18/2016. The patient stated after the radiation therapy the patient started developing wounds near the right inguinal area. Since last week, she started having a worsening wound in the middle right inguinal area and started producing purulent discharge and started to develop some tunneling and foul smelling from the area. She denies any fever or chills. Due to worsening of the burn wound and due to concern for worsening infection, the patient was then recommended by primary care provider to come to the hospital for wound care and antibiotic treatment. ADVERSE EFFECTS: - ASPIRIN (nosebleed) HOME MEDICATIONS: - metformin 100 mg by mouth twice a day - pioglitazone 45 mg by mouth daily - Zantac 150 mg by mouth twice a day as needed for heartburn - repaglinide 2 mg by mouth before meals - Silvadene topical three times a day - Zyrtec 10 mg by mouth daily as needed for allergies - vitamin D 2000 units by mouth daily - Synthroid 25 mcg by mouth daily - lisinopril 40 mg by mouth daily - multivitamin one tablet by mouth daily - simvastatin 40 mg by mouth at bedtime PAST MEDICAL HISTORY: 1. Cervical cancer diagnosed in 2014. 2. Non insulin dependent diabetes. 3. Hypercholesterolemia. 4. Hypertension. 5. Hypothyroidism. PAST SURGICAL HISTORY: 1. Cholecystectomy. 2. Appendectomy. SOCIAL HISTORY: The patient quit smoking 45 years ago. Denies alcohol use. Denies recreational drug use. The patient is a full code. REVIEW OF SYSTEMS: GENERAL: No fever. No chills. HEENT: No vision changes. No auditory changes. CARDIOVASCULAR: No chest pain. No palpitations. RESPIRATORY: No shortness of breath. No cough. No sputum production. GI: No nausea. No vomiting. No abdominal pain. MUSCULOSKELETAL: The patient had 20 sessions of radiation therapy and patient to started to develop a worsening burn wound mainly at the right lower abdomen and right inguinal area. The patient started having worsening wound with drainage since last week. NEUROLOGICAL: No numbness. No tingling. OBJECTIVE: VITAL SIGNS: Blood pressure 152/77. Pulse 98. Respirations 17. Temperature 96.6. Pulse oximetry 99% on room air. Body weight is 87 kg. Body fat is 157.48. GENERAL: No signs of acute distress. HEENT: Normocephalic, atraumatic. Extraocular muscles grossly intact. CARDIOVASCULAR: Positive S1, S2. Regular rate. RESPIRATORY: Clear to auscultation bilaterally. ABDOMEN: Obese. Soft, nontender, nondistended. Bowel sounds present. MUSCULOSKELETAL: There is an open wound near the right inguinal area with severe foul smelling and purulent discharge with tunneling. There is erythema in the periwound area. No lower extremity edema. No cyanosis. NEUROLOGICAL: Sensation to fine touch grossly intact. Muscle strength 5/5. LABORATORY DATA: WBC 3.8, hemoglobin 8.7, hematocrit 28.8, and platelet count 303. Sodium 136, potassium 4.7, chloride 101, carbon dioxide 25, BUN 11, creatinine 0.66, GFR greater than 60, fasting glucose 146, calcium 9.4. MICROBIOLOGY: Wound cultures pending. ASSESSMENT AND PLAN: 1. Postoperative radiation burn ulcer. The patient was admitted to the medical-surgical floor. Will follow with wound cultures. Previously, patient had an abdominal wound culture from 07/01/2016 which showed staphylococcus and Strep. The patient was started on Teflaro. The technical service specialist, Dr. Woods, was contacted. He recommended Desitin in the periwound area and inside the wound and the wound site covered with Optifoam. Dressing should be changed on a daily basis. We also tried to contact the outpatient wound care clinic and tried to set up outpatient wound care followup. The earliest day available is in the middle of July. 2. Non insulin dependent diabetes. Diabetes medication will be discontinued. Patient will switch to insulin sliding scale and will follow with the A1c. The patient had an A1c in March 2016 of 11.8. It is likely the patient may need insulin therapy after discharge. 3. Hypothyroidism. Continue Synthroid and follow TSH. 4. Hypertension. Continue lisinopril. 5. History of cervical cancer diagnosed in 2014. Patient had radiation therapy by Dr. Hay. 6. Hypercholesterolemia. Continue simvastatin. 7. Deep vein thrombosis (DVT) prophylaxis. On heparin.
--- NOTE | 2016-07-12 17:25 | EDDOCDS ---
Physician Documentation [facility] Name: Kathy Dickson Age: 81 yrs Sex: Female : 1935 Arrival Date: 07/12/2016 Time: 11:46 Bed 15 Private MD: Tyron Valenzuela B Disposition: 07/12/16 12:49 Hospitalization ordered by Sonia Durham for Inpatient Admission. Preliminary diagnosis are Open wound of lower leg - right groin, Anemia, unspecified. - Bed requested for 5 Gan. - Status is Inpatient Admission. jjr - Condition is Stable. - Problem is new. - Symptoms are unchanged. Historical: - Allergies: Aspirin; - Home Meds: 1. lisinopril 40 mg Oral tab 1 tab once daily 2. metformin 1,000 mg Oral TG24 1 tab 2 times per day 3. multivitamin Oral tab 1 tab daily 4. pioglitazone 45 mg oral tab 1 tab once daily 5. repaglinide 2 mg oral tab 1 tab 3 times per day 6. simvastatin 40 mg Oral tab 1 tab once daily 7. thyroxine 25 mcg daily 8. Vitamin D Oral 1000 unit twice a day 9. Zantac 150 mg Oral cap as needed 10. Zyrtec 10 mg Oral tab 1 tab as needed - PMHx: Cancer, Cervix; Diabetes - NIDDM: controlled; Hypercholesterolemia; Hypertension; Hypothyroidism; - PSHx: Cholecystectomy; Appendectomy; - Social history: Smoking status: Patient states former smoker of tobacco. No barriers to communication noted, The patient speaks fluent Turkmen, Speaks appropriately for age. - : The pt / caregiver states he / she is not on anticoagulants. Home medication list is obtained from the patient. - Exposure Risk Screening:: None identified. Vital Signs: 07/12 11:46 BP 152 / 77; Pulse 98; Resp 17; Temp 96.6(O); Pulse Ox 99% on R/A; Weight 87.09 kg / lr2 192 lbs (R); Height 5 ft. 2 in. (157.48 cm) (R); Pain 0/10; 15:55 BP 164 / 75; Pulse 87; Resp 18; Temp 97.4(O); Pulse Ox 98% on R/A; jjr 17:21 BP 169 / 76; Pulse 87; Resp 18; Temp 97.8(O); Pulse Ox 99% on R/A; Pain 0/10; jjr 11:46 Body Mass Index 35.12 (87.09 kg, 157.48 cm) lr2 MDM: 12:16 IV Saline Lock ordered. br1 12:17 CBC with Diff Ordered. EDMS 12:17 BMP Ordered. EDMS 12:17 BED REQUEST+ADM ordered. EDMS 12:24 Wound Culture & GS - Most Extremities Ordered. EDMS 12:45 Ceftaroline Fosamil 600 mg IV at calculated rate once over 30 mins; reconstitute with br1 20mL NS or SW, then dilulte in 50mL of NS, D5W or LR ordered. 12:53 Misc. Nursing Order ordered. br1 12:53 CBC with Diff Reviewed. br1 12:54 [facility] [place] Payment Agreement was scanned into [employer] and attached to record. jp5 12:54 Financial registration complete. jp5 13:13 BMP Reviewed. br1 13:20 Admission / Observation Status ordered. EDMS 13:20 CONSISTENT CARBOHYDRATES ordered. EDMS 13:27 Wound Culture & GS - Most Extremities Reviewed. br1 13:30 THYROID STIMULATING HORMONE Ordered. EDMS 13:33 HEMOGLOBIN A1C Ordered. EDMS 14:46 T-Sheet-- Draft Copy was scanned into [employer] and attached to record. gb Administered Medications: 13:23 Drug: Ceftaroline Fosamil 600 mg [ceftaroline fosamil 600 mg intravenous solution] jjr Route: IV; Rate: calculated rate; Infused Over: 30 mins; Site: left antecubital; Signatures: Dispatcher [employer] EDTN Jessenia Lantigua, Case Making Machine Operator Unit deg Beth Ramsay, Reg Reg Jessa Ozuna,RN RN Keven Avelar MD MD br1 Nakita Keith RN RN Roseline Juan jp5 The chart was reviewed and I authenticate all verbal orders and agree with the evaluation and treatment provided.Corrections: (The following items were deleted from the chart) 13:33 13:20 C REACTIVE PROTEIN QUANTITATIV ordered. EDMS EDMS 13:33 13:20 HEMOGLOBIN A1C ordered. EDMS EDMS 13:33 13:20 THYROID STIMULATING HORMONE ordered. EDMS EDMS Attachments: 12:54 [facility] Payment Agreement [facility] 14:46 T-Sheet-- Draft Copy gb MTDD
--- NOTE | 2016-07-12 17:25 | EDDOCDS ---
Nurse's Notes [facility] Name: Kathy Dickson Age: 81 yrs Sex: Female : 1935 Arrival Date: 07/12/2016 Time: 11:46 Bed 15 Private MD: Tyron Valenzuela B Diagnosis: Open wound of lower leg-right groin;Anemia, unspecified Presentation: 07/12 11:53 Presenting complaint: Family states that pt has a radiation burn that is open and PCP jo3 wants pt seen here to address wound. Adult Sepsis Screening: The patient does not have new or worsening altered mentation. Patient's respiratory rate is less than 22. Systolic blood pressure is greater than 100. Patient has a qSOFA score of 0- Negative Sepsis Screen. Suicide/Homicide risk assessment- the patient denies having any suicidal and/or homicidal ideations and does not present with any other emotional, behavioral or mental health complaints. Status: Patient is not a food service clerk or dependent. Transition of care: patient was not received from another setting of care. 11:53 Acuity: ROSARIO Level 3 jo3 11:53 Method Of Arrival: Walkin/Carried/Asstd jo3 Triage Assessment: 11:56 General: Appears in no apparent distress, Behavior is appropriate for age, cooperative, jo3 pleasant. Pain: Pain currently is 1 out of 10 on a pain scale. At worst was 8 out of 10 on a pain scale. Neurological: Level of Consciousness is awake, alert, Oriented to person, place, time. Respiratory: Airway is patent Respiratory effort is even, unlabored. Historical: - Allergies: Aspirin; - Home Meds: 1. lisinopril 40 mg Oral tab 1 tab once daily 2. metformin 1,000 mg Oral TG24 1 tab 2 times per day 3. multivitamin Oral tab 1 tab daily 4. pioglitazone 45 mg oral tab 1 tab once daily 5. repaglinide 2 mg oral tab 1 tab 3 times per day 6. simvastatin 40 mg Oral tab 1 tab once daily 7. thyroxine 25 mcg daily 8. Vitamin D Oral 1000 unit twice a day 9. Zantac 150 mg Oral cap as needed 10. Zyrtec 10 mg Oral tab 1 tab as needed - PMHx: Cancer, Cervix; Diabetes - NIDDM: controlled; Hypercholesterolemia; Hypertension; Hypothyroidism; - PSHx: Cholecystectomy; Appendectomy; - Social history: Smoking status: Patient states former smoker of tobacco. No barriers to communication noted, The patient speaks fluent Malaysian, Speaks appropriately for age. - : The pt / caregiver states he / she is not on anticoagulants. Home medication list is obtained from the patient. - Exposure Risk Screening:: None identified. Screenin:35 Fall Risk. jjr 12:35 Screening information is obtained from the patient, family members. Fall risk: At risk jjr due to age, The following interventions are performed due to a positive Fall Risk Screen: added to special handling. Abuse/DV Screen: The patient / caregiver reports he/she is: not in a situation that causes fear, pain or injury. Nutritional screening: No deficits noted. home support is adequate. 12:39 Assistance ADL's: Requires assistance with meal preparation, this assistance is jjr provided by family members, housework, assistance is provided by family members, medication administration, assistance is provided by family members. Advance Directives: Currently, there is no health care proxy. There is no active DNR order. Assessment: 12:33 General: Appears in no apparent distress, well nourished, well groomed, Behavior is jjr appropriate for age. Pain: Location: right femoral area. Respiratory: Airway is patent Respiratory effort is even, unlabored, Respiratory pattern is regular. Derm: Abscess located on right femoral area is Abscess is approx 2 cm in length with visible tunneling, surrounding skin with erythema and purulent drainage. 14:11 General: Appears in no apparent distress, ambulatory to BR with cane and stand by jjr assist of daughter, sitting on edge of stretcher eating lunch tray. 14:46 General: aglinate packed into wound with desitin to surrounding skin and optifoam. jjr 15:59 General: Appears in no apparent distress. Pain: Location: right femoral area. jjr Respiratory: Airway is patent Respiratory effort is even, unlabored, Respiratory pattern is regular. Derm: Skin is pink, warm & dry. 17:21 General: Appears in no apparent distress, sitting in chair in room, denies pain. jjr Vital Signs: 11:46 BP 152 / 77; Pulse 98; Resp 17; Temp 96.6(O); Pulse Ox 99% on R/A; Weight 87.09 kg (R); lr2 Height 5 ft. 2 in. (157.48 cm) (R); Pain 0/10; 15:55 BP 164 / 75; Pulse 87; Resp 18; Temp 97.4(O); Pulse Ox 98% on R/A; jjr 17:21 BP 169 / 76; Pulse 87; Resp 18; Temp 97.8(O); Pulse Ox 99% on R/A; Pain 0/10; jjr 11:46 Body Mass Index 35.12 (87.09 kg, 157.48 cm) lr2 Vitals: 11:46 RN notified that patient meets Red Flag criteria. lr2 11:50 Log In Time: July 12, 2016 at 11:46. lr2 ED Course: 11:47 Patient visited by Mary Sotelo. lr2 11:47 Patient moved to Waiting lr2 11:48 Tyron Valenzuela is Private Physician. lr2 11:51 Patient moved to Pre RCE lr2 11:55 Triage Initiated jo3 11:58 Patient visited by Jessa Taylor RN. jo3 11:58 Nakita Keith, RN is Primary Nurse. jo3 11:58 Patient moved to 15 jo3 12:06 Keven Zazueta MD is Attending Physician. br1 12:15 Patient visited by Keven Zazueta MD. br1 12:32 Wound Culture & GS - Most Extremities Sent. jjr 12:32 BMP Sent. jjr 12:32 CBC with Diff Sent. jjr 12:33 Inserted saline lock: 20 gauge in left antecubital area and blood collected. Labs/Blood jjr culture drawn Wound culture sent to lab. 12:35 Patient visited by Nakita Keith RN. jjr 12:35 The patient / caregiver is instructed regarding the plan of care and ED course. jjr 12:49 Sonia Durham is Hospitalizing Provider. br1 12:54 [facility] [place] was scanned into [employer] and attached to record. jp5 13:13 Patient name changed from Kathy\S\\S\Yessi\S\ to Kathy\S\ \S\Yessi. EDMS 14:11 Patient visited by Nakita Keith RN. jjr 14:46 T-Sheet-- Draft Copy was scanned into [employer] and attached to record. 15:59 Patient visited by Nakita Keith RN. jjr 17:22 No procedures done that require assistance. jjr Administered Medications: 13:23 Drug: Ceftaroline Fosamil 600 mg [ceftaroline fosamil 600 mg intravenous solution] jjr Route: IV; Rate: calculated rate; Infused Over: 30 mins; Site: left antecubital; Order Results: Lab Order: CBC with Diff; SPEC'M 07/12/16 12:29 Test: WHITE BLOOD COUNT; Value: 3.8; Range: 4.0-10.0; Abnormal: Below low normal; Units: K/mm3; Status: F Test: RED BLOOD COUNT; Value: 3.52; Range: 4.00-5.40; Abnormal: Below low normal; Units: M/mm3; Status: F Test: HEMOGLOBIN; Value: 8.7; Range: 12.0-16.0; Abnormal: Below low normal; Units: g/dl; Status: F Test: HEMATOCRIT; Value: 28.8; Range: 36.0-47.0; Abnormal: Below low normal; Units: %; Status: F Test: MEAN CORPUSCULAR VOLUME; Value: 82.0; Range: 80.0-96.0; Units: fl; Status: F Test: MEAN CORPUSCULAR HEMOGLOBIN; Value: 24.6; Range: 27.0-33.0; Abnormal: Below low normal; Units: pg; Status: F Test: MEAN CORPUSCULAR HGB CONC; Value: 30.1; Range: 32.0-36.5; Abnormal: Below low normal; Units: g/dl; Status: F Test: RED CELL DISTRIBUTION WIDTH; Value: 21.3; Range: 11.5-14.5; Abnormal: Above high normal; Units: %; Status: F Test: PLATELET COUNT, AUTOMATED; Value: 303; Range: 150-450; Units: k/mm3; Status: F Test: NEUTROPHILS %; Value: 80.5; Range: 36.0-66.0; Abnormal: Above high normal; Units: %; Status: F Test: LYMPH %; Value: 10.3; Range: 24.0-44.0; Abnormal: Below low normal; Units: %; Status: F Test: MONO %; Value: 4.6; Range: 0.0-5.0; Units: %; Status: F Test: EOS %; Value: 0.5; Range: 0.0-3.0; Units: %; Status: F Test: BASO %; Value: 0.4; Range: 0.0-1.0; Units: %; Status: F Test: LARGE UNSTAINED CELL %; Value: 3.7; Range: 0.0-4.0; Units: %; Status: F Test: NEUTROPHILS #; Value: 3.1; Range: 1.8-7.7; Units: K/mm3; Status: F Test: LYMPH #; Value: 0.4; Range: 1.5-4.5; Abnormal: Below low normal; Units: K/mm3; Status: F Test: MONO #; Value: 0.2; Range: 0.0-0.8; Units: K/mm3; Status: F Test: EOS #; Value: 0.0; Range: 0.0-0.50; Units: K/mm3; Status: F Test: BASO #; Value: 0.0; Range: 0.0-0.2; Units: K/mm3; Status: F Test: LARGE UNSTAINED CELL #; Value: 0.1; Range: 0.0-0.4; Units: K/mm3; Status: F Lab Order: [facility]; SPEC'M 07/12/16 12:29 Test: GLUCOSE, FASTING; Value: 146; Range: 83-110; Abnormal: Above high normal; Units: MG/DL; Status: F Test: BLOOD UREA NITROGEN; Value: 11; Range: 7-18; Units: MG/DL; Status: F Test: CREATININE FOR GFR; Value: 0.66; Range: 0.55-1.02; Units: MG/DL; Status: F Test: GLOMERULAR FILTRATION RATE; Value: > 60.0; Range: >32; Status: F Test: SODIUM LEVEL; Value: 136; Range: 136-145; Units: MEQ/L; Status: F Test: POTASSIUM SERUM; Value: 4.7; Range: 3.5-5.1; Units: MEQ/L; Status: F Test: CHLORIDE LEVEL; Value: 101; Range: 98-107; Units: MEQ/L; Status: F Test: CARBON DIOXIDE LEVEL; Value: 25; Range: 21-32; Units: MEQ/L; Status: F Test: ANION GAP; Value: 10; Range: 8-16; Units: MEQ/L; Status: F Test: CALCIUM LEVEL; Value: 9.4; Range: 8.8-10.2; Units: MG/DL; Status: F Test Note: ; Units are mL/min/1.73 m2 Chronic Kidney Disease Staging per NKF: Stage I & II GFR >=60 Normal to Mildly Decreased Stage III GFR 30-59 Moderately Decreased Stage IV GFR 15-29 Severely Decreased Stage V GFR <15 Very Little GFR Left ESRD GFR <15 on [employer] Lab Order: Wound Culture & GS - Most Extremities; [facility] 07/12/16 12:29 Test: GRAM STAIN; Value: GRAM STAIN RESULT; Status: F Test: GRAM STAIN; Value: NO CELLS SEEN; Status: F Test: GRAM STAIN; Value: MODERATE GRAM POSITIVE COCCI IN PAIRS; Status: F Lab Order: HEMOGLOBIN A1C; [facility] 07/12/16 12:29 Test: HEMOGLOBIN A1c; Value: 8.4; Range: 4.5-6.2; Abnormal: Above high normal; Units: %; Status: F Test: ESTIMATED AVERAGE GLUCOSE; Value: 194; Range: 60-110; Abnormal: Above high normal; Units: MG/DL; Status: F Lab Order: THYROID STIMULATING HORMONE; [facility] 07/12/16 12:29 Test: THYROID STIMULATING HORMONE; Value: 4.310; Range: 0.358-3.740; Abnormal: Above high normal; Units: uIU/ML; Status: F Lab Order: C REACTIVE PROTEIN QUANTITATIV; [facility] 07/12/16 12:29 Test: C REACTIVE PROTEIN QUANTITATIV; Value: 0.34; Range: 0.00-0.30; Abnormal: Above high normal; Units: MG/DL; Status: F Outcome: 12:49 Decision to Hospitalize by Provider. br1 17:22 Discharge Assessment: patient administered narcotics - no. The following High Risk jjr Discharge criteria are identified: None. Admitted to Med/Surg accompanied by tech, family with patient, via wheelchair, with chart. Condition: stable. No special radiology studies were completed. Property :Personal belongings accompany Pt. 17:24 Patient left the ED. jjr Signatures: Dispatcher [employer] EDMS Beth Ramsay, Malick Reg Jessa OzunaRN RN jo3 Keven Zazueta MD MD br1 Nakita Keith RN RN Roseline Juan jp5 Mary Sotelo2 MTDRui
[2016-07-12 17:30] VITALS: BP 156/96
[2016-07-12] MEDS: HumaLOG INSULIN (NovoLOG) PER UNIT SC SCH ×2 (17:30→21:00)
[2016-07-12] MEDS: SIMVASTATIN 40 MG TAB PO SCH (21:59)
[2016-07-12 22:00] VITALS: BP 179/80
[2016-07-13] MEDS ORDERED: CEFTAROLINE FOSAMIL 600 MG in D5W MINI-BAG PLUS 50 ML IV SCH (01:00)
[2016-07-13] MEDS: CEFTAROLINE FOSAMIL 600 MG in D5W MINI-BAG PLUS 50 ML IV SCH ×2 (01:53→12:43)
[2016-07-13 06:00] VITALS: BP 126/69
[2016-07-13] MEDS: LEVOTHYROXINE 0.025 MG TAB (25 MCG) PO SCH (06:35)
[2016-07-13 06:37] LABS: MEAN CORPUSCULAR HEMOGLOBIN 25.4 pg (27.0-33.0); MEAN CORPUSCULAR HGB CONC 30.9 g/dl (32.0-36.5); MEAN CORPUSCULAR VOLUME 82.2 fl (80.0-96.0); RED CELL DISTRIBUTION WIDTH 22.1 % (11.5-14.5); WHITE BLOOD COUNT 2.9 K/mm3 (4.0-10.0)
[2016-07-13 06:48] LABS: ANION GAP 8 MEQ/L (8-16); BLOOD UREA NITROGEN 9 MG/DL (7-18); CALCIUM LEVEL 9.3 MG/DL (8.8-10.2); CARBON DIOXIDE LEVEL 26 MEQ/L (21-32); CHLORIDE LEVEL 102 MEQ/L (98-107); GLOMERULAR FILTRATION RATE > 60.0 (>32); GLUCOSE, FASTING 123 MG/DL (83-110); POTASSIUM SERUM 4.1 MEQ/L (3.5-5.1); SODIUM LEVEL 136 MEQ/L (136-145)
[2016-07-13] MEDS: VITAMIN D 1,000 INTERNATIONAL UNITS TABLET PO SCH (09:00)
[2016-07-13] MEDS: MULTIVITAMINS/MINERALS THERAP 1 TAB PO SCH (09:00)
[2016-07-13] MEDS: LISINOPRIL 40 MG TAB PO SCH (09:00)
[2016-07-13] MEDS: HumaLOG INSULIN (NovoLOG) PER UNIT SC SCH ×4 (09:01→21:00)
--- NOTE | 2016-07-13 13:56 | IPNPDOC ---
Text Note Date of Service The patient was seen on 07/13/16. NOTE Subjective: Patient is an 81 year old female with a PMHx of Cervical CA, DM2, DLP , HTN, and hypothyroidism who presented with worsening right inguinal wound. She has been receiving radiation therapy for cervical CA with Dr. Hay for 25 sessions, most recent of which was 06/18/2016. Over that last 1 week she has been developing purulent drainage. Patient was seen and examined at the bedside. She notes that she has been having improvement in her wound. Objective: Vitals (See below) General: Lying in bed, no acute distress, comfortable, AAOx3 HEENT: NC, AT CVS: RRR, +S1S2 Lungs: Fair air entry b/l, -w/r/r Abdomen: Soft, ND, NT, +BSx4 Extremities: +PPx4, -edema, -calf tenderness, Right inguinal drainage, packing in place, foul odor, mild tenderness, no erythema Assessment and plan: 1. 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 Woods was contacted, recommended periwound area care with Desitin and Optifoam covering as well as packing of wound - Wound cultures acquired - pending - c/w Teflaro (Day #2) - Will establish outpatient follow up with wound care 2. Leukopenia - possibly immunocompromised - no fevers recorded - will c/w Teflaro 3. Normocytic anemia - H&H slightly below baseline - will monitor for now 4. NIDDM2 - A1c of 8.4 - c/w ISS while inpatient 5. Hypothyroidism - c/w synthroid 6. HTN - c/w lisinopril with holding paramters 7. DLP - c/w simvastatin 8. Hx of Cervical CA - Diagnosed 2014 - s/p radiation therapy 9. DVT prophylaxis - c/w heparin VS,Fishbone, I+O VS, Fishbone, I+O Laboratory Tests 07/13/16 06:19 Calcium Level 9.3, Red Blood Count 3.21 L, Mean Corpuscular Volume 82.2, Mean Corpuscular Hemoglobin 25.4 L, Mean Corpuscular Hemoglobin Concent 30.9 L, Red Cell Distribution Width 22.1 H Vital Signs Date Time Temp Pulse Resp B/P Pulse Ox O2 Delivery O2 Flow Rate FiO2 07/13/16 06:00 98.0 82 18 126/69 94 Room Air I&O- Last 24 Hours up to 6 AM 07/13/16 06:00 Intake Total 240 ml Output Total 650 ml Balance -410 ml TASHA RIDDLE MD Jul 13, 2016 13:56
[2016-07-13 14:00] VITALS: BP 119/73
[2016-07-13] MEDS: SIMVASTATIN 40 MG TAB PO SCH (20:23)
[2016-07-13 22:00] VITALS: BP 153/76
[2016-07-14] MEDS: CEFTAROLINE FOSAMIL 600 MG in D5W MINI-BAG PLUS 50 ML IV SCH ×2 (00:19→12:51)
[2016-07-14 06:00] VITALS: BP 159/73
[2016-07-14] MEDS: LEVOTHYROXINE 0.025 MG TAB (25 MCG) PO SCH (06:30)
[2016-07-14 06:56] LABS: ANION GAP 9 MEQ/L (8-16); BLOOD UREA NITROGEN 11 MG/DL (7-18); CALCIUM LEVEL 9.6 MG/DL (8.8-10.2); CARBON DIOXIDE LEVEL 26 MEQ/L (21-32); CHLORIDE LEVEL 100 MEQ/L (98-107); CREATININE FOR GFR 0.66 MG/DL (0.55-1.02); GLOMERULAR FILTRATION RATE > 60.0 (>32); GLUCOSE, FASTING 167 MG/DL (83-110); MEAN CORPUSCULAR HEMOGLOBIN 25.6 pg (27.0-33.0); MEAN CORPUSCULAR VOLUME 82.4 fl (80.0-96.0); POTASSIUM SERUM 4.1 MEQ/L (3.5-5.1); RED CELL DISTRIBUTION WIDTH 21.8 % (11.5-14.5); SODIUM LEVEL 135 MEQ/L (136-145)
[2016-07-14] MEDS: LISINOPRIL 40 MG TAB PO SCH (09:21)
[2016-07-14] MEDS: MULTIVITAMINS/MINERALS THERAP 1 TAB PO SCH (09:21)
[2016-07-14] MEDS: HumaLOG INSULIN (NovoLOG) PER UNIT SC SCH ×4 (09:21→21:00)
[2016-07-14] MEDS: VITAMIN D 1,000 INTERNATIONAL UNITS TABLET PO SCH (09:21)
[2016-07-14 14:00] VITALS: BP 130/58
--- NOTE | 2016-07-14 14:29 | IPNPDOC ---
Text Note Date of Service The patient was seen on 07/14/16. NOTE Subjective: Patient is an 81 year old female with a PMHx of Cervical CA, DM2, DLP , HTN, and hypothyroidism who presented with worsening right inguinal wound. She has been receiving radiation therapy for cervical CA with Dr. Hay for 25 sessions, most recent of which was 06/18/2016. Over that last 1 week she has been developing purulent drainage. Patient was seen and examined at the bedside. She does not have any complaints today. Objective: Vitals (See below) General: Lying in bed, no acute distress, comfortable, AAOx3 HEENT: NC, AT CVS: RRR, +S1S2 Lungs: Fair air entry b/l, -w/r/r Abdomen: Soft, ND, NT, +BSx4 Extremities: +PPx4, -edema, -calf tenderness, Right inguinal drainage, packing in place, foul odor, mild tenderness, no erythema Assessment and plan: 1. 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 Woods was contacted, recommended periwound area care with Desitin and Optifoam covering as well as packing of wound - Wound cultures acquired - pending - Will get CT of pelvis to evaluate for abscess collection and need for additional intervention - c/w Teflaro (Day #3) - Will establish outpatient follow up with wound care 2. Leukopenia - possibly immunocompromised - no fevers recorded - will c/w Teflaro 3. Normocytic anemia - H&H slightly below baseline - will monitor for now 4. NIDDM2 - A1c of 8.4 - c/w ISS while inpatient 5. Hypothyroidism - c/w Synthroid 6. HTN - c/w lisinopril with holding parameters 7. DLP - c/w simvastatin 8. Hx of Cervical CA - Diagnosed 2014 - s/p radiation therapy 9. DVT prophylaxis - c/w heparin VS,Fishbone, I+O VS, Fishbone, I+O Laboratory Tests 07/14/16 06:16 Calcium Level 9.6, Red Blood Count 3.27 L, Mean Corpuscular Volume 82.4, Mean Corpuscular Hemoglobin 25.6 L, Mean Corpuscular Hemoglobin Concent 31.0 L, Red Cell Distribution Width 21.8 H Vital Signs Date Time Temp Pulse Resp B/P Pulse Ox O2 Delivery O2 Flow Rate FiO2 07/14/16 06:00 98.8 85 20 159/73 97 Room Air I&O- Last 24 Hours up to 6 AM 07/14/16 05:59 Intake Total 1420 ml Output Total 650 ml Balance 770 ml TASHA RIDDLE MD Jul 14, 2016 14:29
[2016-07-14] MEDS ORDERED: ISOVUE-370 76% 100ML VIAL (Q9967) As Ordered ONE (14:48)
--- NOTE | 2016-07-14 15:33 | REP ---
Clinical: Right inguinal abscess/ulcer. Technique: Axial contrast enhanced images of the pelvis using 100 ml Isovue 370 intravenous contrast material with coronal and sagittal re-formations. Comparison: 07/01/2016. Findings: Cellulitis with dermal thickening and adjacent inflammatory changes to the subcutaneous tissues with small suspected ulceration/open wound is identified in the right groin where the anterior abdominal pannus apposes the anterior thigh (images 80 - 92). There is no associated drainable collection or abscess. Visualized small and large bowel is unremarkable. Sigmoid diverticulosis noted without acute diverticulitis. Bladder is partially collapsed and grossly normal. Uterus and adnexa appears somewhat heterogeneous. No pelvic fluid. No free air. Vascular structures demonstrate atherosclerotic changes. Skeletal structures demonstrate degenerative changes. Impression: Small area of cellulitis and ulceration at the skin surface of the right groin. No associated abscess or drainable collection. Signed by Jeremiah Grubbs MD 07/14/2016 03:24 P
--- NOTE | 2016-07-14 18:25 | EDDOCDS ---
Nurse's Notes [facility] Name: Kathy Dickson Age: 81 yrs Sex: Female : 1935 Arrival Date: 07/12/2016 Time: 11:46 Bed 15 Private MD: Tyron Valenzuela B Diagnosis: Open wound of lower leg-right groin;Anemia, unspecified Presentation: 07/12 11:53 Presenting complaint: Family states that pt has a radiation burn that is open and PCP jo3 wants pt seen here to address wound. Adult Sepsis Screening: The patient does not have new or worsening altered mentation. Patient's respiratory rate is less than 22. Systolic blood pressure is greater than 100. Patient has a qSOFA score of 0- Negative Sepsis Screen. Suicide/Homicide risk assessment- the patient denies having any suicidal and/or homicidal ideations and does not present with any other emotional, behavioral or mental health complaints. Status: Patient is not a general service technician or dependent. Transition of care: patient was not received from another setting of care. 11:53 Acuity: ROSARIO Level 3 jo3 11:53 Method Of Arrival: Walkin/Carried/Asstd jo3 Triage Assessment: 11:56 General: Appears in no apparent distress, Behavior is appropriate for age, cooperative, jo3 pleasant. Pain: Pain currently is 1 out of 10 on a pain scale. At worst was 8 out of 10 on a pain scale. Neurological: Level of Consciousness is awake, alert, Oriented to person, place, time. Respiratory: Airway is patent Respiratory effort is even, unlabored. Historical: - Allergies: Aspirin; - Home Meds: 1. lisinopril 40 mg Oral tab 1 tab once daily 2. metformin 1,000 mg Oral TG24 1 tab 2 times per day 3. multivitamin Oral tab 1 tab daily 4. pioglitazone 45 mg oral tab 1 tab once daily 5. repaglinide 2 mg oral tab 1 tab 3 times per day 6. simvastatin 40 mg Oral tab 1 tab once daily 7. thyroxine 25 mcg daily 8. Vitamin D Oral 1000 unit twice a day 9. Zantac 150 mg Oral cap as needed 10. Zyrtec 10 mg Oral tab 1 tab as needed - PMHx: Cancer, Cervix; Diabetes - NIDDM: controlled; Hypercholesterolemia; Hypertension; Hypothyroidism; - PSHx: Cholecystectomy; Appendectomy; - Social history: Smoking status: Patient states former smoker of tobacco. No barriers to communication noted, The patient speaks fluent Slovenian, Speaks appropriately for age. - : The pt / caregiver states he / she is not on anticoagulants. Home medication list is obtained from the patient. - Exposure Risk Screening:: None identified. Screenin:35 Fall Risk. jjr 12:35 Screening information is obtained from the patient, family members. Fall risk: At risk jjr due to age, The following interventions are performed due to a positive Fall Risk Screen: added to special handling. Abuse/DV Screen: The patient / caregiver reports he/she is: not in a situation that causes fear, pain or injury. Nutritional screening: No deficits noted. home support is adequate. 12:39 Assistance ADL's: Requires assistance with meal preparation, this assistance is jjr provided by family members, housework, assistance is provided by family members, medication administration, assistance is provided by family members. Advance Directives: Currently, there is no health care proxy. There is no active DNR order. Assessment: 12:33 General: Appears in no apparent distress, well nourished, well groomed, Behavior is jjr appropriate for age. Pain: Location: right femoral area. Respiratory: Airway is patent Respiratory effort is even, unlabored, Respiratory pattern is regular. Derm: Abscess located on right femoral area is Abscess is approx 2 cm in length with visible tunneling, surrounding skin with erythema and purulent drainage. 14:11 General: Appears in no apparent distress, ambulatory to BR with cane and stand by jjr assist of daughter, sitting on edge of stretcher eating lunch tray. 14:46 General: aglinate packed into wound with desitin to surrounding skin and optifoam. jjr 15:59 General: Appears in no apparent distress. Pain: Location: right femoral area. jjr Respiratory: Airway is patent Respiratory effort is even, unlabored, Respiratory pattern is regular. Derm: Skin is pink, warm & dry. 17:21 General: Appears in no apparent distress, sitting in chair in room, denies pain. jjr Vital Signs: 11:46 BP 152 / 77; Pulse 98; Resp 17; Temp 96.6(O); Pulse Ox 99% on R/A; Weight 87.09 kg (R); lr2 Height 5 ft. 2 in. (157.48 cm) (R); Pain 0/10; 15:55 BP 164 / 75; Pulse 87; Resp 18; Temp 97.4(O); Pulse Ox 98% on R/A; jjr 17:21 BP 169 / 76; Pulse 87; Resp 18; Temp 97.8(O); Pulse Ox 99% on R/A; Pain 0/10; jjr 11:46 Body Mass Index 35.12 (87.09 kg, 157.48 cm) lr2 Vitals: 11:46 RN notified that patient meets Red Flag criteria. lr2 11:50 Log In Time: July 12, 2016 at 11:46. lr2 ED Course: 11:47 Patient visited by Mary Sotelo. lr2 11:47 Patient moved to Waiting lr2 11:48 Tyron Valenzuela is Private Physician. lr2 11:51 Patient moved to Pre RCE lr2 11:55 Triage Initiated jo3 11:58 Patient visited by Jessa Taylor RN. jo3 11:58 Nakita Keith, RN is Primary Nurse. jo3 11:58 Patient moved to 15 jo3 12:06 Keven Zazueta MD is Attending Physician. br1 12:15 Patient visited by Keven Zazueta MD. br1 12:32 Wound Culture & GS - Most Extremities Sent. jjr 12:32 BMP Sent. jjr 12:32 CBC with Diff Sent. jjr 12:33 Inserted saline lock: 20 gauge in left antecubital area and blood collected. Labs/Blood jjr culture drawn Wound culture sent to lab. 12:35 Patient visited by Nakita Keith RN. jjr 12:35 The patient / caregiver is instructed regarding the plan of care and ED course. jjr 12:49 Sonia Durham is Hospitalizing Provider. br1 12:54 [facility] [place] Payment Agreement was scanned into [employer] and attached to record. jp5 13:13 Patient name changed from Kathy\S\\S\Yessi\S\ to Kathy\S\ \S\Yessi. EDMS 14:11 Patient visited by Nakita Keith RN. jjr 14:46 T-Sheet-- Draft Copy was scanned into [employer] and attached to record. 15:59 Patient visited by Nakita Keith RN. jjr 17:22 No procedures done that require assistance. jjr Administered Medications: 13:23 Drug: Ceftaroline Fosamil 600 mg [ceftaroline fosamil 600 mg intravenous solution] jjr Route: IV; Rate: calculated rate; Infused Over: 30 mins; Site: left antecubital; Order Results: Lab Order: CBC with Diff; SPEC'M 07/12/16 12:29 Test: WHITE BLOOD COUNT; Value: 3.8; Range: 4.0-10.0; Abnormal: Below low normal; Units: K/mm3; Status: F Test: RED BLOOD COUNT; Value: 3.52; Range: 4.00-5.40; Abnormal: Below low normal; Units: M/mm3; Status: F Test: HEMOGLOBIN; Value: 8.7; Range: 12.0-16.0; Abnormal: Below low normal; Units: g/dl; Status: F Test: HEMATOCRIT; Value: 28.8; Range: 36.0-47.0; Abnormal: Below low normal; Units: %; Status: F Test: MEAN CORPUSCULAR VOLUME; Value: 82.0; Range: 80.0-96.0; Units: fl; Status: F Test: MEAN CORPUSCULAR HEMOGLOBIN; Value: 24.6; Range: 27.0-33.0; Abnormal: Below low normal; Units: pg; Status: F Test: MEAN CORPUSCULAR HGB CONC; Value: 30.1; Range: 32.0-36.5; Abnormal: Below low normal; Units: g/dl; Status: F Test: RED CELL DISTRIBUTION WIDTH; Value: 21.3; Range: 11.5-14.5; Abnormal: Above high normal; Units: %; Status: F Test: PLATELET COUNT, AUTOMATED; Value: 303; Range: 150-450; Units: k/mm3; Status: F Test: NEUTROPHILS %; Value: 80.5; Range: 36.0-66.0; Abnormal: Above high normal; Units: %; Status: F Test: LYMPH %; Value: 10.3; Range: 24.0-44.0; Abnormal: Below low normal; Units: %; Status: F Test: MONO %; Value: 4.6; Range: 0.0-5.0; Units: %; Status: F Test: EOS %; Value: 0.5; Range: 0.0-3.0; Units: %; Status: F Test: BASO %; Value: 0.4; Range: 0.0-1.0; Units: %; Status: F Test: LARGE UNSTAINED CELL %; Value: 3.7; Range: 0.0-4.0; Units: %; Status: F Test: NEUTROPHILS #; Value: 3.1; Range: 1.8-7.7; Units: K/mm3; Status: F Test: LYMPH #; Value: 0.4; Range: 1.5-4.5; Abnormal: Below low normal; Units: K/mm3; Status: F Test: MONO #; Value: 0.2; Range: 0.0-0.8; Units: K/mm3; Status: F Test: EOS #; Value: 0.0; Range: 0.0-0.50; Units: K/mm3; Status: F Test: BASO #; Value: 0.0; Range: 0.0-0.2; Units: K/mm3; Status: F Test: LARGE UNSTAINED CELL #; Value: 0.1; Range: 0.0-0.4; Units: K/mm3; Status: F Lab Order: [facility]; SPEC'M 07/12/16 12:29 Test: GLUCOSE, FASTING; Value: 146; Range: 83-110; Abnormal: Above high normal; Units: MG/DL; Status: F Test: BLOOD UREA NITROGEN; Value: 11; Range: 7-18; Units: MG/DL; Status: F Test: CREATININE FOR GFR; Value: 0.66; Range: 0.55-1.02; Units: MG/DL; Status: F Test: GLOMERULAR FILTRATION RATE; Value: > 60.0; Range: >32; Status: F Test: SODIUM LEVEL; Value: 136; Range: 136-145; Units: MEQ/L; Status: F Test: POTASSIUM SERUM; Value: 4.7; Range: 3.5-5.1; Units: MEQ/L; Status: F Test: CHLORIDE LEVEL; Value: 101; Range: 98-107; Units: MEQ/L; Status: F Test: CARBON DIOXIDE LEVEL; Value: 25; Range: 21-32; Units: MEQ/L; Status: F Test: ANION GAP; Value: 10; Range: 8-16; Units: MEQ/L; Status: F Test: CALCIUM LEVEL; Value: 9.4; Range: 8.8-10.2; Units: MG/DL; Status: F Test Note: ; Units are mL/min/1.73 m2 Chronic Kidney Disease Staging per NKF: Stage I & II GFR >=60 Normal to Mildly Decreased Stage III GFR 30-59 Moderately Decreased Stage IV GFR 15-29 Severely Decreased Stage V GFR <15 Very Little GFR Left ESRD GFR <15 on PROFESSOR [employer]ENCE Lab Order: Wound Culture & GS - Most Extremities; [facility]' 07/12/16 12:29 Test: GRAM STAIN; Value: GRAM STAIN RESULT; Status: F Test: GRAM STAIN; Value: NO CELLS SEEN; Status: F Test: GRAM STAIN; Value: MODERATE GRAM POSITIVE COCCI IN PAIRS; Status: F Lab Order: HEMOGLOBIN A1C; [facility] 07/12/16 12:29 Test: HEMOGLOBIN A1c; Value: 8.4; Range: 4.5-6.2; Abnormal: Above high normal; Units: %; Status: F Test: ESTIMATED AVERAGE GLUCOSE; Value: 194; Range: 60-110; Abnormal: Above high normal; Units: MG/DL; Status: F Lab Order: THYROID STIMULATING HORMONE; [facility] 07/12/16 12:29 Test: THYROID STIMULATING HORMONE; Value: 4.310; Range: 0.358-3.740; Abnormal: Above high normal; Units: uIU/ML; Status: F Lab Order: C REACTIVE PROTEIN QUANTITATIV; [facility] 07/12/16 12:29 Test: C REACTIVE PROTEIN QUANTITATIV; Value: 0.34; Range: 0.00-0.30; Abnormal: Above high normal; Units: MG/DL; Status: F Outcome: 12:49 Decision to Hospitalize by Provider. br1 17:22 Discharge Assessment: patient administered narcotics - no. The following High Risk jjr Discharge criteria are identified: None. Admitted to Med/Surg accompanied by tech, family with patient, via wheelchair, with chart. Condition: stable. No special radiology studies were completed. Property :Personal belongings accompany Pt. 17:24 Patient left the ED. jjr Signatures: Dispatcher [employer] EDMS Beth Ramsay, Malick Reg Jessa Ozuna RN RN heber3 Keven Zazueta MD MD br1 Nakita Keith RN RN jjr Price, Jennalee jp5 Mary Sotelo2 Chart Complete MTDD
--- NOTE | 2016-07-14 18:25 | EDDOCDS ---
Physician Documentation [facility] Name: Kathy Dickson Age: 81 yrs Sex: Female : 1935 Arrival Date: 07/12/2016 Time: 11:46 Bed 15 Private MD: Tyron Valenzuela B Disposition: 07/12/16 12:49 Hospitalization ordered by Sonia Durham for Inpatient Admission. Preliminary diagnosis are Open wound of lower leg - right groin, Anemia, unspecified. - Bed requested for 5 Gan. - Status is Inpatient Admission. jjr - Condition is Stable. - Problem is new. - Symptoms are unchanged. Historical: - Allergies: Aspirin; - Home Meds: 1. lisinopril 40 mg Oral tab 1 tab once daily 2. metformin 1,000 mg Oral TG24 1 tab 2 times per day 3. multivitamin Oral tab 1 tab daily 4. pioglitazone 45 mg oral tab 1 tab once daily 5. repaglinide 2 mg oral tab 1 tab 3 times per day 6. simvastatin 40 mg Oral tab 1 tab once daily 7. thyroxine 25 mcg daily 8. Vitamin D Oral 1000 unit twice a day 9. Zantac 150 mg Oral cap as needed 10. Zyrtec 10 mg Oral tab 1 tab as needed - PMHx: Cancer, Cervix; Diabetes - NIDDM: controlled; Hypercholesterolemia; Hypertension; Hypothyroidism; - PSHx: Cholecystectomy; Appendectomy; - Social history: Smoking status: Patient states former smoker of tobacco. No barriers to communication noted, The patient speaks fluent Danish, Speaks appropriately for age. - : The pt / caregiver states he / she is not on anticoagulants. Home medication list is obtained from the patient. - Exposure Risk Screening:: None identified. Vital Signs: 07/12 11:46 BP 152 / 77; Pulse 98; Resp 17; Temp 96.6(O); Pulse Ox 99% on R/A; Weight 87.09 kg / lr2 192 lbs (R); Height 5 ft. 2 in. (157.48 cm) (R); Pain 0/10; 15:55 BP 164 / 75; Pulse 87; Resp 18; Temp 97.4(O); Pulse Ox 98% on R/A; jjr 17:21 BP 169 / 76; Pulse 87; Resp 18; Temp 97.8(O); Pulse Ox 99% on R/A; Pain 0/10; jjr 11:46 Body Mass Index 35.12 (87.09 kg, 157.48 cm) lr2 MDM: 12:16 IV Saline Lock ordered. br1 12:17 CBC with Diff Ordered. EDMS 12:17 BMP Ordered. EDMS 12:17 BED REQUEST+ADM ordered. EDMS 12:24 Wound Culture & GS - Most Extremities Ordered. EDMS 12:45 Ceftaroline Fosamil 600 mg IV at calculated rate once over 30 mins; reconstitute with br1 20mL NS or SW, then dilulte in 50mL of NS, D5W or LR ordered. 12:53 Misc. Nursing Order ordered. br1 12:53 CBC with Diff Reviewed. br1 12:54 [facility] [place] Payment Agreement was scanned into [employer] and attached to record. jp5 12:54 Financial registration complete. jp5 13:13 BMP Reviewed. br1 13:20 Admission / Observation Status ordered. EDMS 13:20 CONSISTENT CARBOHYDRATES ordered. EDMS 13:27 Wound Culture & GS - Most Extremities Reviewed. br1 13:30 THYROID STIMULATING HORMONE Ordered. EDMS 13:33 HEMOGLOBIN A1C Ordered. EDMS 14:46 T-Sheet-- Draft Copy was scanned into [employer] and attached to record. gb Administered Medications: 13:23 Drug: Ceftaroline Fosamil 600 mg [ceftaroline fosamil 600 mg intravenous solution] jjr Route: IV; Rate: calculated rate; Infused Over: 30 mins; Site: left antecubital; Signatures: Dispatcher [employer] EDPA Jessenia Lantigua, Cylinder Block Hole Reliner Unit deg Beth Ramsay, Reg Reg Jessa Ozuna,RN RN Keven Avelar MD MD br1 Nakita Keith RN RN Roseline Juan jp5 The chart was reviewed and I authenticate all verbal orders and agree with the evaluation and treatment provided.Corrections: (The following items were deleted from the chart) 13:33 13:20 C REACTIVE PROTEIN QUANTITATIV ordered. EDMS EDMS 13:33 13:20 HEMOGLOBIN A1C ordered. EDMS EDMS 13:33 13:20 THYROID STIMULATING HORMONE ordered. EDMS EDMS Attachments: 12:54 [facility] Payment Agreement [facility] 14:46 T-Sheet-- Draft Copy gb Chart Complete MTDD
--- NOTE | 2016-07-14 18:25 | EDDOCDS ---
Physician Documentation [facility] Name: Kathy Dickson Age: 81 yrs Sex: Female : 1935 Arrival Date: 07/12/2016 Time: 11:46 Bed 15 Private MD: Tyron Valenzuela B Disposition: 07/12/16 12:49 Hospitalization ordered by Sonia Durham for Inpatient Admission. Preliminary diagnosis are Open wound of lower leg - right groin, Anemia, unspecified. - Bed requested for 5 Gan. - Status is Inpatient Admission. jjr - Condition is Stable. - Problem is new. - Symptoms are unchanged. Historical: - Allergies: Aspirin; - Home Meds: 1. lisinopril 40 mg Oral tab 1 tab once daily 2. metformin 1,000 mg Oral TG24 1 tab 2 times per day 3. multivitamin Oral tab 1 tab daily 4. pioglitazone 45 mg oral tab 1 tab once daily 5. repaglinide 2 mg oral tab 1 tab 3 times per day 6. simvastatin 40 mg Oral tab 1 tab once daily 7. thyroxine 25 mcg daily 8. Vitamin D Oral 1000 unit twice a day 9. Zantac 150 mg Oral cap as needed 10. Zyrtec 10 mg Oral tab 1 tab as needed - PMHx: Cancer, Cervix; Diabetes - NIDDM: controlled; Hypercholesterolemia; Hypertension; Hypothyroidism; - PSHx: Cholecystectomy; Appendectomy; - Social history: Smoking status: Patient states former smoker of tobacco. No barriers to communication noted, The patient speaks fluent Telugu, Speaks appropriately for age. - : The pt / caregiver states he / she is not on anticoagulants. Home medication list is obtained from the patient. - Exposure Risk Screening:: None identified. Vital Signs: 07/12 11:46 BP 152 / 77; Pulse 98; Resp 17; Temp 96.6(O); Pulse Ox 99% on R/A; Weight 87.09 kg / lr2 192 lbs (R); Height 5 ft. 2 in. (157.48 cm) (R); Pain 0/10; 15:55 BP 164 / 75; Pulse 87; Resp 18; Temp 97.4(O); Pulse Ox 98% on R/A; jjr 17:21 BP 169 / 76; Pulse 87; Resp 18; Temp 97.8(O); Pulse Ox 99% on R/A; Pain 0/10; jjr 11:46 Body Mass Index 35.12 (87.09 kg, 157.48 cm) lr2 MDM: 12:16 IV Saline Lock ordered. br1 12:17 CBC with Diff Ordered. EDMS 12:17 BMP Ordered. EDMS 12:17 BED REQUEST+ADM ordered. EDMS 12:24 Wound Culture & GS - Most Extremities Ordered. EDMS 12:45 Ceftaroline Fosamil 600 mg IV at calculated rate once over 30 mins; reconstitute with br1 20mL NS or SW, then dilulte in 50mL of NS, D5W or LR ordered. 12:53 Misc. Nursing Order ordered. br1 12:53 CBC with Diff Reviewed. br1 12:54 [facility] [place] Payment Agreement was scanned into [employer] and attached to record. jp5 12:54 Financial registration complete. jp5 13:13 BMP Reviewed. br1 13:20 Admission / Observation Status ordered. EDMS 13:20 CONSISTENT CARBOHYDRATES ordered. EDMS 13:27 Wound Culture & GS - Most Extremities Reviewed. br1 13:30 THYROID STIMULATING HORMONE Ordered. EDMS 13:33 HEMOGLOBIN A1C Ordered. EDMS 14:46 T-Sheet-- Draft Copy was scanned into [employer] and attached to record. gb Administered Medications: 13:23 Drug: Ceftaroline Fosamil 600 mg [ceftaroline fosamil 600 mg intravenous solution] jjr Route: IV; Rate: calculated rate; Infused Over: 30 mins; Site: left antecubital; Signatures: Dispatcher [employer] EDCT Jessenia Lantigua, Cook Sauce Unit deg Beth Ramsay, Reg Reg Jessa Ozuna,RN RN Keven Avelar MD MD br1 Nakita Keith RN RN Roseline Juan jp5 The chart was reviewed and I authenticate all verbal orders and agree with the evaluation and treatment provided.Corrections: (The following items were deleted from the chart) 13:33 13:20 C REACTIVE PROTEIN QUANTITATIV ordered. EDMS EDMS 13:33 13:20 HEMOGLOBIN A1C ordered. EDMS EDMS 13:33 13:20 THYROID STIMULATING HORMONE ordered. EDMS EDMS Attachments: 12:54 [facility] Payment Agreement [facility] [place] 14:46 T-Sheet-- Draft Copy gb Chart Complete MTDD
[2016-07-14] MEDS: SIMVASTATIN 40 MG TAB PO SCH (20:01)
[2016-07-14 22:00] VITALS: BP 142/74
[2016-07-15] MEDS: CEFTAROLINE FOSAMIL 600 MG in D5W MINI-BAG PLUS 50 ML IV SCH ×2 (01:03→13:34)
[2016-07-15 06:00] VITALS: BP 136/66
[2016-07-15] MEDS: LEVOTHYROXINE 0.025 MG TAB (25 MCG) PO SCH (06:35)
[2016-07-15 06:58] LABS: MEAN CORPUSCULAR HEMOGLOBIN 24.8 pg (27.0-33.0); MEAN CORPUSCULAR HGB CONC 30.2 g/dl (32.0-36.5); MEAN CORPUSCULAR VOLUME 82.1 fl (80.0-96.0); RED CELL DISTRIBUTION WIDTH 22.1 % (11.5-14.5)
[2016-07-15 07:01] LABS: ANION GAP 10 MEQ/L (8-16); BLOOD UREA NITROGEN 12 MG/DL (7-18); CALCIUM LEVEL 9.7 MG/DL (8.8-10.2); CARBON DIOXIDE LEVEL 25 MEQ/L (21-32); CHLORIDE LEVEL 99 MEQ/L (98-107); CREATININE FOR GFR 0.66 MG/DL (0.55-1.02); GLOMERULAR FILTRATION RATE > 60.0 (>32); GLUCOSE, FASTING 173 MG/DL (83-110); POTASSIUM SERUM 4.4 MEQ/L (3.5-5.1); SODIUM LEVEL 134 MEQ/L (136-145)
[2016-07-15] MEDS: HumaLOG INSULIN (NovoLOG) PER UNIT SC SCH ×4 (08:11→21:01)
[2016-07-15] MEDS: LISINOPRIL 40 MG TAB PO SCH (08:11)
[2016-07-15] MEDS: MULTIVITAMINS/MINERALS THERAP 1 TAB PO SCH (08:11)
[2016-07-15] MEDS: VITAMIN D 1,000 INTERNATIONAL UNITS TABLET PO SCH (08:11)
[2016-07-15 08:36] LABS: FREE T4 0.97 NG/DL (0.76-1.46)
[2016-07-15 09:00] VITALS: BP 131/60
--- NOTE | 2016-07-15 13:44 | IPNPDOC ---
Text Note Date of Service The patient was seen on 07/15/16. NOTE Subjective: Patient is an 81 year old female with a PMHx of Cervical CA, DM2, DLP , HTN, and hypothyroidism who presented with worsening right inguinal wound. She has been receiving radiation therapy for cervical CA with Dr. Hay for 25 sessions, most recent of which was 06/18/2016. Over that last 1 week she has been developing purulent drainage. Patient was seen and examined at the bedside. She reports that she is not having any pain, fever or redness. Still having drainage from the wound. Objective: Vitals (See below) General: Lying in bed, no acute distress, comfortable, AAOx3 HEENT: NC, AT CVS: RRR, +S1S2 Lungs: Fair air entry b/l, -w/r/r Abdomen: Soft, ND, NT, +BSx4 Extremities: +PPx4, -edema, -calf tenderness, Right inguinal drainage, packing in place, foul odor, no tenderness, no erythema Assessment and plan: 1. 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 Woods was contacted, recommended periwound area care with Desitin and Optifoam covering as well as packing of wound - Wound cultures acquired - pending - CT pelvis 07/14: no abscess or collection to be drained - c/w Teflaro (Day #4) - Will establish outpatient follow up with wound care 2. Leukopenia - possibly immunocompromised - no fevers recorded - will c/w Teflaro 3. Normocytic anemia - H&H slightly below baseline - will monitor for now 4. NIDDM2 - A1c of 8.4 - c/w ISS while inpatient 5. Hypothyroidism - c/w Synthroid 6. HTN - c/w lisinopril with holding parameters 7. DLP - c/w simvastatin 8. Hx of Cervical CA - Diagnosed 2014 - s/p radiation therapy 9. DVT prophylaxis - c/w heparin VS,Fishbone, I+O VS, Fishbone, I+O Laboratory Tests 07/15/16 06:25 Calcium Level 9.7, Red Blood Count 3.28 L, Mean Corpuscular Volume 82.1, Mean Corpuscular Hemoglobin 24.8 L, Mean Corpuscular Hemoglobin Concent 30.2 L, Red Cell Distribution Width 22.1 H Vital Signs Date Time Temp Pulse Resp B/P Pulse Ox O2 Delivery O2 Flow Rate FiO2 07/15/16 06:00 98.3 84 20 136/66 98 Room Air I&O- Last 24 Hours up to 6 AM 07/15/16 06:00 Intake Total 1370 ml Output Total 0 ml Balance 1370 ml TASHA RIDDLE MD Jul 15, 2016 13:44
[2016-07-15 14:00] VITALS: BP 143/75
[2016-07-15 14:54] VITALS: BP 136/66
[2016-07-15] MEDS: DESITIN TOP SCH (17:54)
[2016-07-15] MEDS: SIMVASTATIN 40 MG TAB PO SCH (21:06)
[2016-07-16] MEDS: CEFTAROLINE FOSAMIL 600 MG in D5W MINI-BAG PLUS 50 ML IV SCH ×2 (01:01→13:37)
[2016-07-16 06:00] VITALS: BP 141/75
[2016-07-16] MEDS: LEVOTHYROXINE 0.025 MG TAB (25 MCG) PO SCH (06:13)
[2016-07-16 07:10] LABS: MEAN CORPUSCULAR HEMOGLOBIN 25.7 pg (27.0-33.0); MEAN CORPUSCULAR HGB CONC 31.2 g/dl (32.0-36.5); MEAN CORPUSCULAR VOLUME 82.5 fl (80.0-96.0); RED CELL DISTRIBUTION WIDTH 22.1 % (11.5-14.5); WHITE BLOOD COUNT 3.2 K/mm3 (4.0-10.0)
[2016-07-16 07:23] LABS: ANION GAP 8 MEQ/L (8-16); BLOOD UREA NITROGEN 16 MG/DL (7-18); CALCIUM LEVEL 9.4 MG/DL (8.8-10.2); CARBON DIOXIDE LEVEL 26 MEQ/L (21-32); CHLORIDE LEVEL 99 MEQ/L (98-107); CREATININE FOR GFR 0.76 MG/DL (0.55-1.02); GLOMERULAR FILTRATION RATE > 60.0 (>32); GLUCOSE, FASTING 181 MG/DL (83-110); POTASSIUM SERUM 4.7 MEQ/L (3.5-5.1); SODIUM LEVEL 133 MEQ/L (136-145)
[2016-07-16] MEDS: DESITIN TOP SCH (09:57)
[2016-07-16] MEDS: VITAMIN D 1,000 INTERNATIONAL UNITS TABLET PO SCH (09:57)
[2016-07-16] MEDS: MULTIVITAMINS/MINERALS THERAP 1 TAB PO SCH (09:57)
[2016-07-16] MEDS: LISINOPRIL 40 MG TAB PO SCH (09:57)
[2016-07-16] MEDS: HumaLOG INSULIN (NovoLOG) PER UNIT SC SCH ×2 (09:58→13:38)
--- NOTE | 2016-07-16 13:52 | IPNPDOC ---
Text Note Date of Service The patient was seen on 07/16/16. NOTE Subjective: Patient is an 81 year old female with a PMHx of Cervical CA, DM2, DLP , HTN, and hypothyroidism who presented with worsening right inguinal wound. She has been receiving radiation therapy for cervical CA with Dr. Hay for 25 sessions, most recent of which was 06/18/2016. Over that last 1 week she has been developing purulent drainage. Patient was seen and examined at the bedside with daughter in the room. She reports the drainage from the wound has subsided. No additional complaints. Objective: Vitals (See below) General: Lying in bed, no acute distress, comfortable, AAOx3 HEENT: NC, AT CVS: RRR, +S1S2 Lungs: Fair air entry b/l, -w/r/r Abdomen: Soft, ND, NT, +BSx4 Extremities: +PPx4, -edema, -calf tenderness, Right inguinal drainage, packing removed and wound irrigated, foul odor, no tenderness, no erythema Assessment and plan: 1. 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 Woods was contacted, recommended periwound area care with Desitin and Optifoam covering as well as packing of wound - Wound cultures acquired - pending; called microbiology - was told cultures are consistent with Alpha hemolytic Strep species - sensitivities and identity will be resulted tomorrow - CT pelvis 07/14: no abscess or collection to be drained - c/w Teflaro (Day #5) - Will establish follow up at wound clinic with Dr. Woods - Will transition antibiotics to oral based on susceptibilities 2. Leukopenia - possibly immunocompromised - no fevers recorded - will c/w Teflaro 3. Normocytic anemia - H&H slightly below baseline - will monitor for now 4. NIDDM2 - A1c of 8.4 - Will start levemir 10 units SQ - c/w ISS while inpatient 5. Hypothyroidism - c/w Synthroid 6. HTN - c/w lisinopril with holding parameters 7. DLP - c/w simvastatin 8. Hx of Cervical CA - Diagnosed 2014 - s/p radiation therapy 9. DVT prophylaxis - c/w heparin VS,Fishbone, I+O VS, Fishbone, I+O Laboratory Tests 07/16/16 06:42 Calcium Level 9.4, Red Blood Count 3.24 L, Mean Corpuscular Volume 82.5, Mean Corpuscular Hemoglobin 25.7 L, Mean Corpuscular Hemoglobin Concent 31.2 L, Red Cell Distribution Width 22.1 H Vital Signs Date Time Temp Pulse Resp B/P Pulse Ox O2 Delivery O2 Flow Rate FiO2 07/16/16 06:00 98.5 91 18 141/75 94 Room Air I&O- Last 24 Hours up to 6 AM 07/16/16 06:00 Intake Total 1660 ml Output Total 0 ml Balance 1660 ml TASHA RIDDLE MD Jul 16, 2016 13:52
[2016-07-16 14:00] VITALS: BP 171/72
[2016-07-16] MEDS ORDERED: CLIN1CAP5 PO (16:05)
--- NOTE | 2016-07-16 16:41 | DSES ---
DATE OF ADMISSION: 07/12/2016 DATE OF DISCHARGE: 07/16/2016 ATTENDING PHYSICIAN: Melissa Cooper MD PRIMARY CARE PHYSICIAN: Dr. Jose Angel Valenzuela REFERRING PHYSICIAN: None. CONSULTING PHYSICIAN: None. CONDITION ON DISCHARGE: Stable. FINAL DIAGNOSIS: Cellulitis secondary to radiation therapy. PROCEDURES: None. HISTORY OF PRESENT ILLNESS: Patient is an 81-year-old female with a past medical history of cervical cancer, diabetes mellitus type 2, dyslipidemia, hypertension, hypothyroidism, who presented with worsening right inguinal wound. She has been receiving radiation therapy for cervical cancer with Dr. Hay for 25 sessions, most recent of which was 06/18/2016. For her last one week prior to admission, she has been developing purulent drainage. HOSPITAL COURSE: 1. 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 No fevers during hospital course. Was positive for drainage, no edema, but is positive for foul odor. Dr. Woods was contacted. Recommended periwound care with Desitin and Optifoam covering, as well as packing of the wound. Wound cultures were acquired, which are positive for Streptococcus anginosus, which is sensitive to clindamycin. Patient was initially started on Teflaro. Throughout her hospital course, she has received five days of Teflaro and upon discharge, she has been given an additional five more days of clindamycin. Patient has been advised to follow up with her primary care provider and wound care with Dr. Woods. 2. Leukopenia, possibly secondary to immunocompromised state. No fevers have been recorded. Continue with Teflaro and transition to clindamycin as outpatient. 3. Normocytic anemia. Hemoglobin is presently below baseline, but has been stable. 4. Non-insulin dependent diabetes mellitus type 2. A1c of 8.4. Patient was continued with insulin sliding scale. 5. Hypothyroidism. Continue with Synthroid. 6. Hypertension. Continue with lisinopril with holding parameters. 7. Dyslipidemia. Continue with simvastatin. 8. History of cervical cancer diagnosed in 2014. Status post radiation therapy. 9. Deep venous thrombosis (DVT) prophylaxis. Continue with heparin subcutaneously. DISCHARGE MEDICATIONS: Patient will be discharged home with the following medications: - [id number] mg by mouth daily - vitamin D 2000 units by mouth daily - levothyroxine 25 mcg by mouth daily - lisinopril 40 mg by mouth daily - metformin 100 mg by mouth twice a day - multivitamin one tablet by mouth daily - pioglitazone 45 mg by mouth daily - ranitidine one tablet by mouth twice a day - repaglinide 2 mg by mouth before meals - silver sulfadiazine topical three times a day - simvastatin 40 mg by mouth at bedtime NEW MEDICATION PRESCRIBED: - clindamycin 150 mg by mouth four times a day DISCHARGE INSTRUCTIONS: The patient has been advised to follow up with her primary care provider and wound care within the next seven days. She has been advised to remain compliant with treatment plan and medications, and to return to the emergency room if she experiences any problems upon discharges. TIME SPENT ON DISCHARGE: Thirty-seven minutes.
[2016-07-16] MEDS ORDERED: LEVEMIR (INSULIN DETEMIR) 1 UNITS/0.01ML SC SCH (21:00)
== END 2016-07-16 18:40 | disposition home health service (06) | DRG 920 ==
LOC: M ED 11:46 → M ED INP 13:09 → M MS5PR 17:30
PROVIDERS: ADMIT Internal Medicine; ATTEND Internal Medicine
DX: L76.82 Other postprocedural complications of skin and subcutaneous tissue (principal); L03.314 Cellulitis of groin; T21.02XA Burn of unspecified degree of abdominal wall, initial encounter; E11.9 Type 2 diabetes mellitus without complications; E78.5 Hyperlipidemia, unspecified; I10 Essential (primary) hypertension; E03.9 Hypothyroidism, unspecified; C53.9 Malignant neoplasm of cervix uteri, unspecified; Z92.3 Personal history of irradiation; D50.9 Iron deficiency anemia, unspecified; Z79.899 Other long term (current) drug therapy; Z87.891 Personal history of nicotine dependence